=== PATIENT | male | born 1940 | race Hispanic/Latino ===

== ENCOUNTER 2016-11-09 00:23 | Inpatient (IN) | payer MEDICARE ==
[2016-11-09 01:12] LABS: Basophils % (Auto) 1.2 % (0.0-1.8); Eosinophils % (Auto) 6.6 % (0.0-4.3); Hematocrit 40.7 % (35.5-45.6); Hemoglobin 14.3 gm/dl (11.8-15.2); Mean Corpuscular HGB Conc 35 % (32-34); Mean Corpuscular Hemoglobin 33 pg (28-32); Mean Corpuscular Volume 94 fl (84-94); Platelet Count 195 K/mm3 (140-440); Red Blood Count 4.31 M/mm3 (3.65-5.03); White Blood Count 5.8 K/mm3 (4.5-11.0)
[2016-11-09 01:32] LABS: Anion Gap 17 mmol/L; BUN/Creatinine Ratio 15.83; Blood Urea Nitrogen 19 mg/dL (9-20); Carbon Dioxide 23 mmol/L (22-30); Chloride 98.5 mmol/L (98-107); Glucose 245 mg/dL (75-100); Potassium 4.5 mmol/L (3.6-5.0); Sodium 134 mmol/L (137-145)
--- NOTE | 2016-11-09 02:52 | Emergency Department Report ---
ED Chest Pain HPI - General Chief Complaint: Chest Pain Stated Complaint: CHEST PAIN Time Seen by Provider: 11/09/16 02:42 Source: patient Mode of arrival: Ambulatory Limitations: No Limitations - History of Present Illness Initial Comments: 76-year-old male with a past medical history CVA, diabetes, hypertension, CAD, elevated cholesterol, and beautiful cardiac stent presents to the hospital complaining of chest pain. Pain started 1 hour prior to arrival. Patient was sitting on his bed at symptom onset. Pain at the midsternal area, stabbing in nature, 4/10 in intensity. Denies associated shortness breath, nausea, vomiting , diaphoresis. Pain free at this time. Patient she states it feels like heart attack pain but admits he cannot remember what his heart attack feels like but states what his previous heart attack he had radiation to his jaw. He denies radiation to jaw with this episode. Patient states he has chronic memory deficits and anesthesia of the left side of his body since having a stroke. Severity scale (0 -10): 0 - Related Data Home Medications Medication Instructions Recorded Confirmed Last Taken Amlodipine Besylate 10 mg PO DAILY 11/09/16 11/09/16 Unknown Omeprazole 20 mg PO DAILY 11/09/16 11/09/16 Unknown Pioglitazone 30 mg PO DAILY 11/09/16 11/09/16 Unknown Pravastatin Sodium 40 mg PO DAILY 11/09/16 11/09/16 Unknown Allergies Allergy/AdvReac Type Severity Reaction Status Date / Time No Known Allergies Allergy Unverified 03/01/15 09:54 Heart Score - HEART Score History: Slightly suspicious EKG: Non-specific Age: > 65 Risk factors: > 3 risk factors or hx of atherosclerotic disease Troponin: < normal limit HEART Score: 5 ED Review of Systems ROS: Stated complaint: CHEST PAIN Other details as noted in HPI Comment: All other systems reviewed and negative Other: Constitutional: No fevers chills Eyes: No eye pain visual changes ENT: No ear pain or throat pain Neck: Denies pain Respiratory: Denies cough wheezing shortness of breath Cardiovascular: As per HPI GI: Denies abdominal pain, nausea, vomiting, diarrhea : Denies dysuria Musculoskeletal: Denies back pain Skin: Denies rash, lesions, erythema Neurologic: Denies headache, numbness, weakness Psychiatric: Denies suicidal ideation, hallucinations ED Past Medical Hx - Past Medical History Hx Hypertension: Yes 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) Hx Heart Attack/AMI: Yes Hx Diabetes: Yes Additional medical history: high cholesterol - Surgical History Hx Coronary Stent: Yes Additional Surgical History: prostate - Social History Smoking Status: Never Smoker Substance Use Type: None - Medications Home Medications: Home Medications Medication Instructions Recorded Confirmed Last Taken Type Amlodipine Besylate 10 mg PO DAILY 11/09/16 11/09/16 Unknown History Omeprazole 20 mg PO DAILY 11/09/16 11/09/16 Unknown History Pioglitazone 30 mg PO DAILY 11/09/16 11/09/16 Unknown History Pravastatin Sodium 40 mg PO DAILY 11/09/16 11/09/16 Unknown History ED Physical Exam - General Limitations: No Limitations - Other Other exam information: General: No limitations, patient is alert in no acute distress Head exam: Atraumatic, normocephalic Eyes exam: Normal appearance ENT: Moist mucous membrane, normal oropharynx Neck exam: Normal inspection, full range of motion, no meningismus nontender Respiratory exam: Clear to auscultation bilateral, no wheezes, rales, crackles Cardiovascular: Normal rate and rhythm, normal heart sounds Abdomen: Soft, nondistended, and nontender, with normal bowel sounds, no rebound, or guarding Extremity: Full range of motion normal inspection no deformity, tenderness or edema Back: Normal Inspection, full range of motion, no tenderness Neurologic: Alert, oriented x3, cranial nerves intact, no sensation to palpation of left-sided body. 5/5 upper and lower extremity strength Psychiatric: normal affect, normal mood Skin: Warm, dry, intact ED Course Vital Signs 11/09/16 11/09/16 11/09/16 00:47 02:47 03:28 Temperature 97.8 F Pulse Rate 52 L 47 L Respiratory 16 18 Rate Blood Pressure 163/83 O2 Sat by Pulse 98 98 Oximetry 11/09/16 11/09/16 03:30 03:45 Temperature Pulse Rate 49 L 46 L Respiratory 18 17 Rate Blood Pressure 161/76 161/76 O2 Sat by Pulse 97 96 Oximetry - Reevaluation(s) Reevaluation #1: 11/09/16 pt pain free in ED EDIE score - Edie Score Age > 65: (1) Yes Aspirin use within the Past 7 Days: (0) No 3 or more CAD Risk Factors: (1) Yes 2 or more Angina events in past 24 hrs: (0) No Known CAD with more than 50% Stenosis: (0) No Elevated Cardiac Markers: (0) No ST Deviation Greater than 0.5mm: (0) No EDIE Score: 2 ED Medical Decision Making - Lab Data Result diagrams: 11/09/16 04:00 11/09/16 00:57 Lab Results 11/09/16 11/09/16 11/09/16 Range/Units 00:57 00:57 04:00 WBC 5.8 5.9 (4.5-11.0) K/mm3 RBC 4.31 4.20 (3.65-5.03) M/mm3 Hgb 14.3 13.7 (11.8-15.2) gm/dl Hct 40.7 39.8 (35.5-45.6) % MCV 94 95 H (84-94) fl MCH 33 H 33 H (28-32) pg MCHC 35 H 34 (32-34) % RDW 14.0 14.1 (13.2-15.2) % Plt Count 195 178 (140-440) K/mm3 Lymph % (Auto) 31.3 34.6 (13.4-35.0) % [place] % (Auto) 8.5 H 9.3 H (0.0-7.3) % Eos % (Auto) 6.6 H 7.2 H (0.0-4.3) % Baso % (Auto) 1.2 1.1 (0.0-1.8) % Lymph # 1.8 2.0 (1.2-5.4) K/mm3 [place] # 0.5 0.6 (0.0-0.8) K/mm3 Eos # 0.4 0.4 (0.0-0.4) K/mm3 Baso # 0.1 0.1 (0.0-0.1) K/mm3 Seg Neutrophils % 52.4 47.8 (40.0-70.0) % Seg Neutrophils # 3.0 2.8 (1.8-7.7) K/mm3 Sodium 134 L (137-145) mmol/L Potassium 4.5 (3.6-5.0) mmol/L Chloride 98.5 (98-107) mmol/L Carbon Dioxide 23 (22-30) mmol/L Anion Gap 17 mmol/L BUN 19 (9-20) mg/dL Creatinine 1.2 (0.8-1.5) mg/dL Estimated GFR 59 ml/min BUN/Creatinine Ratio 15.83 % Glucose 245 H (75-100) mg/dL Calcium 9.0 (8.4-10.2) mg/dL Troponin T < 0.010 (0.00-0.029) ng/mL - EKG Data -: EKG Interpreted by [facility] ([facility], 1st degree av block, rbbb) - EKG Data 11/09/16 04:46 repeat ekg: dhaval 46, 1st degree av block, rbb, ald Critical Care Time: No Critical care attestation.: If time is entered above; I have spent that time in minutes in the direct care of this critically ill patient, excluding procedure time. ED Disposition Clinical Impression: Chest pain, Hx of heart artery stent, History of CVA with residual deficit Disposition: 09 OP ADMIT IP TO THIS HOSP Is pt being admited?: Yes Condition: Stable Time of Disposition: 02:55 (Dr Willis/hosp)
[2016-11-09] MEDS ORDERED: DULCOLAX PR PRN (03:44)
[2016-11-09] MEDS ORDERED: MORPHINE IV PRN (03:44)
[2016-11-09] MEDS ORDERED: SODIUM CHLORIDE FLUSH SYRINGE 10 ML IV PRN (03:44)
[2016-11-09] MEDS ORDERED: TYLENOL PO PRN (03:44)
[2016-11-09] MEDS ORDERED: ZOFRAN IV PRN (03:44)
[2016-11-09] MEDS ORDERED: MILK OF MAGNESIA PO PRN (03:44)
--- NOTE | 2016-11-09 03:51 | History and Physical Report ---
History of Present Illness Date of examination: 11/09/16 History of present illness: 76-year-old man with a history of hypertension, coronary artery disease, diabetes, hyperlipidemia, CVA comes emergency room with complaints of chest pain. Pain is in the epigastric area which is a sharp pain, intermittent in nature lasting 30 minutes, no radiation any cannot identify exacerbation or relieving factors. Had a stress test this year Patient denies cough, abdominal pain, hematochezia, dysuria, frequency, focal weakness, dysarthria, fever chills, polydipsia polyuria, hot or cold intolerance , easy bruisability, or rash or bleeding from mucosal membrane, rhinorrhea, epistaxis, earache, tinnitus, blurry vision, eye discharge, anxiety, depression. Other review of systems negative PAST SURGICAL HISTORY: Prostate SOCIAL HISTORY: Denies alcohol, tobacco, drugs FAMILY HISTORY: Hypertension Medications and Allergies Allergies Allergy/AdvReac Type Severity Reaction Status Date / Time No Known Allergies Allergy Unverified 03/01/15 09:54 Home Medications Medication Instructions Recorded Confirmed Last Taken Type Amlodipine Besylate 10 mg PO DAILY 11/09/16 11/09/16 Unknown History Omeprazole 20 mg PO DAILY 11/09/16 11/09/16 Unknown History Pioglitazone 30 mg PO DAILY 11/09/16 11/09/16 Unknown History Pravastatin Sodium 40 mg PO DAILY 11/09/16 11/09/16 Unknown History Active Meds: Active Medications Acetaminophen (Tylenol) 650 mg PO Q4H PRN PRN Reason: Pain MILD(1-3)/Fever >100.5/ESPINOZA Bisacodyl (Dulcolax) 10 mg CA QDAY PRN PRN Reason: Constipation unrelieved by MOM Magnesium Hydroxide (Milk Of Magnesia) 30 ml PO Q4H PRN PRN Reason: Constipation Morphine Sulfate (Morphine) 1 mg IV Q4H PRN PRN Reason: Pain, Moderate (4-6) Ondansetron HCl (Zofran) 4 mg IV Q8H PRN PRN Reason: N/V unrelieved by Reglan Sodium Chloride (Sodium Chloride Flush Syringe 10 Ml) 10 ml IV PRN PRN PRN Reason: LINE FLUSH Exam - Physical Exam Narrative exam: Gen. appearance: Patient lying in bed, no apparent distress HEENT: Normocephalic, atraumatic, pupils equally round and reactive to light, extraocular movement intact, and no sclericterus,. No JVD or thyromegaly or nodule,neck supple, no carotid bruit ,mucous membranes moist, no exudate or erythema Heart: S1, S2, regular rate and rhythm Lungs: Clear to auscultation bilaterally, breathing comfortable Abdomen: Positive bowel sounds, nontender, nondistended, no organomegaly Extremity: No edema, cyanosis, clubbing Skin: No rash, nodules, warm, dry Neuro: Oriented 3, cranial nerves II-12 intact, speech is fluent, motor and sensory intact - Constitutional Vitals: Temp Pulse Resp BP Pulse Ox 97.8 F 52 L 16 163/83 98 11/09/16 00:47 11/09/16 00:47 11/09/16 02:47 11/09/16 00:47 11/09/16 00:47 Results - Labs CBC & Chem 7: 11/09/16 04:00 11/09/16 04:00 Labs: Abnormal lab results 11/09/16 11/09/16 Range/Units 00:57 00:57 MCH 33 H (28-32) pg MCHC 35 H (32-34) % [place] % (Auto) 8.5 H (0.0-7.3) % Eos % (Auto) 6.6 H (0.0-4.3) % Sodium 134 L (137-145) mmol/L Glucose 245 H (75-100) mg/dL - Imaging and Cardiology EKG: image reviewed Chest x-ray: image reviewed Assessment and Plan Unstable angina Coronary artery disease Hypertension Diabetes Hyperlipidemia Admit to medicine Check cardiac enzymes, lipid profile and consult cardiology Check fingersticks initiate insulin sliding scale Start DVT prophylaxis
[2016-11-09 04:43] LABS: Basophils % (Auto) 1.1 % (0.0-1.8); Eosinophils % (Auto) 7.2 % (0.0-4.3); Hematocrit 39.8 % (35.5-45.6); Hemoglobin 13.7 gm/dl (11.8-15.2); Mean Corpuscular HGB Conc 34 % (32-34); Mean Corpuscular Hemoglobin 33 pg (28-32); Mean Corpuscular Volume 95 fl (84-94); Platelet Count 178 K/mm3 (140-440); Red Cell Distribution Width 14.1 % (13.2-15.2); White Blood Count 5.9 K/mm3 (4.5-11.0)
[2016-11-09 04:50] LABS: BUN/Creatinine Ratio 14.28; Calcium 8.8 mg/dL (8.4-10.2); Chloride 101.3 mmol/L (98-107); Potassium 4.7 mmol/L (3.6-5.0)
[2016-11-09] MEDS ORDERED: D50W (25GM) IV PRN (08:13)
[2016-11-09] MEDS: NOVOLOG SUB-Q SCH ×4 (08:36→21:33)
--- NOTE | 2016-11-09 09:35 | XRay Report ---
AP CHEST: HISTORY: chest pain The right hemidiaphragm is elevated or eventrated with compressive atelectasis at the right lung base. The right upper lobe and left lung are clear. Heart size and pulmonary vascularity are within normal limits. Mild aortic calcifications. The thoracic cage is unremarkable. IMPRESSION: Elevated right hemidiaphragm with atelectasis at the right lung base.
--- NOTE | 2016-11-09 13:13 | Consultation ---
History of Present Illness Consult date: 11/09/16 Consult reason: chest pain History of present illness: 76 YO man with h/o CAD s/p PCI, Htn, DM, HL, and prior CVA who presented to ED after he had episodes of chest pain. He describes the pain as a sharp stabbing type of pain in his left chest with no radiation. He did have associated dyspnea and nausea but no diaphoresis. There was no exertional component to his pain. He thinks he had similar pain prior to his previous [place]. [place] has currently been ruled out with serial negative cardiac enzymes. ECG reveals sinus bradycarida at 51 bpm with RBBB and LAFB. Past History Past Medical History: CAD, diabetes, hypertension, hyperlipidemia, stroke Past Surgical History: PTCA Social history: denies: smoking Family history: CAD Medications and Allergies Allergies Allergy/AdvReac Type Severity Reaction Status Date / Time No Known Allergies Allergy Unverified 03/01/15 09:54 Home Medications Medication Instructions Recorded Confirmed Last Taken Type Amlodipine Besylate 10 mg PO DAILY 11/09/16 11/09/16 Unknown History Omeprazole 20 mg PO DAILY 11/09/16 11/09/16 Unknown History Pioglitazone 30 mg PO DAILY 11/09/16 11/09/16 Unknown History Pravastatin Sodium 40 mg PO DAILY 11/09/16 11/09/16 Unknown History Active Meds: Active Medications Acetaminophen (Tylenol) 650 mg PO Q4H PRN PRN Reason: Pain MILD(1-3)/Fever >100.5/ESPINOZA Bisacodyl (Dulcolax) 10 mg RI QDAY PRN PRN Reason: Constipation unrelieved by MOM Dextrose (D50w (25gm)) 50 ml IV PRN PRN PRN Reason: Hypoglycemia Insulin Aspart (Novolog) 0 units SUB-Q ACHS WHITNEY PRN Reason: Protocol Last Admin: 11/09/16 12:17 Dose: 3 units Magnesium Hydroxide (Milk Of Magnesia) 30 ml PO Q4H PRN PRN Reason: Constipation Morphine Sulfate (Morphine) 1 mg IV Q4H PRN PRN Reason: Pain, Moderate (4-6) Ondansetron HCl (Zofran) 4 mg IV Q8H PRN PRN Reason: N/V unrelieved by Reglan Sodium Chloride (Sodium Chloride Flush Syringe 10 Ml) 10 ml IV PRN PRN PRN Reason: LINE FLUSH Review of Systems All systems: negative (per hpi) Physical Examination Vital Signs Temp Pulse BP Pulse Ox 97.8 F 52 L 163/83 98 11/09/16 00:47 11/09/16 00:47 11/09/16 00:47 11/09/16 00:47 Last Vital Signs Temp 97.7 F 11/09/16 05:32 Pulse 54 L 11/09/16 05:32 Resp 20 11/09/16 05:32 BP 179/83 11/09/16 05:32 Pulse Ox 95 11/09/16 10:48 General appearance: no acute distress HEENT: Positive: EOMI Neck: Positive: neck supple Cardiac: Positive: Reg Rate and Rhythm. Negative: Audible Murmur Lungs: Positive: clear to auscultation Neuro: Positive: Grossly Intact Abdomen: Positive: Soft, Active Bowel Sounds Extremities: Absent: edema Results 11/09/16 04:00 11/09/16 04:00 CBC 11/09/16 Range/Units 04:00 WBC 5.9 (4.5-11.0) K/mm3 RBC 4.20 (3.65-5.03) M/mm3 Hgb 13.7 (11.8-15.2) gm/dl Hct 39.8 (35.5-45.6) % Plt Count 178 (140-440) K/mm3 Lymph # 2.0 (1.2-5.4) K/mm3 [place] # 0.6 (0.0-0.8) K/mm3 Eos # 0.4 (0.0-0.4) K/mm3 Baso # 0.1 (0.0-0.1) K/mm3 Comprehensive Metabolic Panel 11/09/16 Range/Units 04:00 Sodium 139 (137-145) mmol/L Potassium 4.7 (3.6-5.0) mmol/L Chloride 101.3 (98-107) mmol/L Carbon Dioxide 26 (22-30) mmol/L BUN 20 (9-20) mg/dL Creatinine 1.4 (0.8-1.5) mg/dL Glucose 181 H (75-100) mg/dL Calcium 8.8 (8.4-10.2) mg/dL Assessment and Plan Chest pain with typical and atypical features. [place] has been ruled out CAD s/p prior [place] and PCI Htn DM HL Sinus bradycardia, Bifascicular block (RBBB and LAFB) Recommend: Restart aspirin, statin, norvasc. Will avoid beta franklin in setting of sinus bradycardia and bifascicular block MPI tomorrow.
--- NOTE | 2016-11-09 15:42 | Event Note ---
Date: 11/09/16 Patient admitted this morning for chest pain. Charts were reviewed.
[2016-11-09] MEDS: BABY ASPIRIN PO SCH (16:00)
[2016-11-09] MEDS: NORVASC PO SCH (16:00)
[2016-11-10 07:45] LABS: Eosinophils % (Auto) 5.9 % (0.0-4.3); Hematocrit 41.5 % (35.5-45.6); Hemoglobin 14.3 gm/dl (11.8-15.2); Mean Corpuscular HGB Conc 34 % (32-34); Mean Corpuscular Hemoglobin 33 pg (28-32); Mean Corpuscular Volume 95 fl (84-94); Platelet Count 182 K/mm3 (140-440); Red Blood Count 4.39 M/mm3 (3.65-5.03); Red Cell Distribution Width 13.8 % (13.2-15.2); White Blood Count 6.4 K/mm3 (4.5-11.0)
[2016-11-10 07:57] LABS: Anion Gap 14 mmol/L; BUN/Creatinine Ratio 15.45; Blood Urea Nitrogen 17 mg/dL (9-20); Calcium 8.7 mg/dL (8.4-10.2); Carbon Dioxide 27 mmol/L (22-30); Chloride 103.1 mmol/L (98-107); Glucose 160 mg/dL (75-100); Potassium 4.3 mmol/L (3.6-5.0); Sodium 140 mmol/L (137-145)
[2016-11-10] MEDS: NOVOLOG SUB-Q SCH ×3 (08:00→17:36)
[2016-11-10] MEDS ORDERED: LEXISCAN IV ONE ×2 (09:46→09:49)
--- NOTE | 2016-11-10 11:31 | Admit Criteria Form ---
Admission Criteria Documentation: CARDIOLOGY GRG Clinical Indications for Admission to Inpatient Care ( Place 'X' for any and all applicable criteria): Hospital admission is needed for appropriate care of the patient because of ANY ONE of the following (1): [ ] I. Hemodynamic instability as indicated by ALL of the following (1)(2)(3) (4)(5) [ ]a) Vital signs or other findings not as expected for chronic patient condition or baseline [ ]b) Instability indicated by ANY ONE of the following: [ ]i) Hypotension [ ]ii) Symptomatic Tachycardia unresponsive to treatment ( e.g., analgesia, fluids, sedation as indicated) [ ]iii) Inadequate perfusion indicated by ANY ONE of the following: [ ] 1) Lactic acidosis (> 2 mmol/L) [ ] 2) New abnormal capillary refill (> 3 seconds) [ ] 3) Reduced urine output [ ] 4) New altered mental status [ ]iv) Orthostatic vital sign changes unresponsive to treatment (e.g., fluids) [ ]v) IV inotropic or vasopressor medication required to maintain adequate blood pressure or perfusion [ ] II. Severe heart failure as indicated by ANY ONE of the following(17)(18) [ ]a) Respiratory distress [ ]b) Hypotension [ ]c) Anasarca (refractory to outpatient therapy) [ ]d) Cardiac arrhythmias of immediate concern [ ]e) Myocardial ischemia [ ] III. Cardiac arrhythmias or findings of immediate concern indicated by ANY ONE of the following (19)(20): [ ] a) Heart rhythms that are inherently dangerous or unstable indicated by ANY ONE of the following (21)(22)(23): [ ] i) Resuscitated ventricular fibrillation or cardiac arrest [ ] ii) Ventricular escape rhythm [ ] iii) Sustained ventricular tachycardia (30 seconds or more of ventricular rhythm at greater than 100 beats per minute) [ ] iv) Nonsustained ventricular tachycardia and ANY ONE of the following: [ ] 1) Suspected cardiac ischemia as cause or consequence of ventricular tachycardia [ ] 2) In setting of acute myocarditis [ ] b) Unstable cardiac conduction defects indicated by ANY ONE of the following(23)(24)(25) [ ] i) Type II second-degree atrioventricular block [ ]ii) Third-degree atrioventricular block [ ]iii) New-onset left bundle branch block with suspected myocardial ischemia [ ]c) Any heart rhythm and ANY ONE of the following (21)(22)(26)(27) (28) [ ] i) Continuous long-term ECG monitoring needed (e.g., initiation of drug requiring monitoring for more than 24 hours) [ ] ii) Patient has automatic implanted cardioverter defibrillator that is repeatedly firing, malfunctioning, or in need of immediate adjustment of settings beyond the scope of ambulatory or observation care [ ]d) Heart rhythms of concern due to ANY ONE of the following: [ ] i) Hypotension [ ] ii) Respiratory distress [ ] iii) Association with other significant symptoms (e.g., bradycardia with syncope or ongoing dizziness, supraventricular tachycardia with chest pain (14)(15)(17) [ ] IV. Monitoring for cardiac contusion beyond the scope of observation care needed [A](30)(31)(32) [ ] V. Surgical or device complication (e.g., valve replacement complication , pacemaker dysfunction) (35)(41)(44)(45)(46) [ ] . Inpatient palliative care needed. [B](49) Also use Inpatient Palliative Care Criteria [ ] VII. Nonbacterial thrombotic (marantic) endocarditis (36)(43)(47)(48) [X] VIII. Cardiology condition, symptom, or finding for which emergency and observation care has failed or are not considered appropriate. [ ] IX. Acute valvular disease requiring inpatient as indicated by ANY ONE of the following (41) [ ]a) Acute valvular regurgitation (42) [ ]b) Noninfectious valvulitis (43) [ ]c) Obstructive valve thrombosis [ ]d) Paravalvular leak [ ]e) Other significant valvular disorder remaining after emergency or observation level of care (as appropriate) [ ]X. Pericardial disease requiring inpatient treatment as indicated by ANY ONE of the following (33)(34)(35)(36)(37) [ ]a) Suspected tamponade (38)(39)(40) [ ]b) Hemopericardium [ ]c) Other significant pericardial disorder remaining after emergency or observation level of care (as appropriate) [ ] XI. Cardiac ischemia beyond scope of emergency and observation care. [ ] XII. Hypertension requiring inpatient treatment as indicated by ANY ONE of the following (6)(7)(8) [ ]a) SBP greater than 220 mm Hg or DBP greater than 120 mmHg despite treatment [ ]b) SBP greater than 140 mm Hg or DBP greater than 100 mm Hg with evidence of acute end organ damage as indicated by ANY ONE of the following [ ] i) Altered mental status [ ] ii) Acute renal failure as indicated by new onset of ANY ONE of the following (9)(10)(11)(12)(13) [ ]1) 3-fold rise in serum creatinine from baseline [ ]2) Serum creatinine greater than 4 mg/dL ( 354 micromoles/L) with acute rise greater than 0.5 mg/dL (44.2 micromoles/L) [ ]3) Reduction of more than 75% in estimated glomerular filtration rate from baseline [ ]4) Estimated glomerular filtration rate less than 35 mL/min/1.73m2 (0.59 mL/sec/1.73m2) in child up to 18 years of age [ ]5) Cessation of urine output indicated by ALL of the following [ ]A. Adequate volume status [ ]B. Inadequate urine output as indicated by ANY ONE of the following [ ]a. Urine output less than 0.3 mL/kg/hr for 24 hours [ ]b. Anuria (urine output less than 0.1 mL/kg/hr) for 12 hours [ ] iii) Aortic dissection [ ] iv) Myocardial Ischemia [ ] v) Left ventricular heart failure [ ]vi) Retinal Hemorrhage [ ]vii) Other significant finding [ ]c) Hypertension in child requiring inpatient treatment as indicated by ALL of the following(14)(15)(16) [ ] i) Outpatient treatment not effective, not available, or not appropriate [ ]ii) SBP or DBP greater than 95th percentile for age [ ]iii) Evidence of acute end organ damage as indicated by ANY ONE of the following [ ]1) Altered mental status [ ]2) Acute renal failure as indicated by new onset of ANY ONE of the following(9)(10)(11)(12)(13) [ ]A. 3-fold rise in serum creatinine from baseline [ ]B. Serum creatinine greater than 4 mg/dL (354 micromoles/L) with acute rise greater than 0.5 mg/dL (44.2 micromoles/L) [ ]C. Reduction of more than 75% in estimated glomerular filtration rate from baseline [ ]D. Estimated glomerular filtration rate less than 35 mL/min/1.73m2 (0.59 mL/sec/1.73m2) in child up to 18 years of age [ ]E. Cessation of urine output indicated by ALL of the following [ ]a. Adequate volume status [ ]b. Inadequate urine output as indicated by ANY ONE of the following [ ]i) Urine output less than 0.3 mL/kg/hr for 24 hours [ ]ii) Anuria ( urine output less than 0.1 mL/kg/hr) for 12 hours [ ]3) Severe headache [ ]4) Visual disturbance [ ]5) Retinal hemorrhage [ ]6) Other significant finding [ ]XIII. Complications of transplanted heart indicated by ANY ONE of the following(61): [ ]a) Acute graft rejection requiring inpatient management (eg, intravenous immunosuppression)(62)(63) [ ]b) Acute graft heart failure indicated by ANY ONE of the following(64): [ ]i) Hemodynamic instability [ ]ii) Cardiac arrhythmias of immediate concern [ ]iii) Pulmonary edema that is very severe (eg, mechanical ventilation needed, imminent or likely, need for 100% oxygen to keep oxygen saturation above 90%) [ ]iv) Pulmonary edema that is persistent as indicated by ALL of the following: [ ]1) New need for oxygen therapy to keep oxygen saturation above 90% (or increased FiO2 need from baseline) [ ]2) Has not improved sufficiently with emergency department or observation care IV diuretics or other heart failure treatments[E] [ ]v) Altered mental status that is severe or persistent [ ]vi) Increased creatinine (new on laboratory test) with reduction of more than 50% in estimated glomerular filtration rate from baseline [ ]vii) Progressively (ongoing) rising creatinine (known from past laboratory test) with reduction of more than 25% in estimated glomerular filtration rate from baseline [ ]viii) Acute renal failure [ ]ix) Acute peripheral ischemia (eg, examination shows pulseless, cool, mottled, or cyanotic extremity) [ ]x) Pulmonary artery catheter monitoring needed [ ]xi) Other sign or symptom of heart failure requiring inpatient treatment (ie, too severe or not responsive to outpatient and observation care treatment) [ ]c) Infection requiring inpatient management (eg, Hemodynamic instability, need for intravenous antimicrobial treatment)(66)(67)(68)(69)(70) [ ]d) Cardiac allograft vasculopathy requiring inpatient management ( eg evidence of cardiac ischemia)(71) [ ]e) Other complication of transplanted heart (eg, stroke, severe pulmonary hypertension, severe valvular dysfunction) requiring inpatient management(72) The original [facility] [employer] content created by [facility] [employer] has been revised. The portions of the content which have been revised are identified through the use of italic text or in bold, and [facility] has neither reviewed nor approved the modified material. All other unmodified content is copyright [facility] [employer]. Please see references footnoted in the original [facility] [employer] edition 2016 Admission Criteria Met: Yes
[2016-11-10] MEDS: BABY ASPIRIN PO SCH (12:37)
[2016-11-10] MEDS: NORVASC PO SCH (12:38)
[2016-11-10 12:39] VITALS: BP 147/69
--- NOTE | 2016-11-10 14:34 | Discharge Summary ---
Providers - Providers Date of Admission: 11/09/16 03:44 Date of discharge: 11/10/16 Attending physician: ISAIAS HE MD Primary care physician: JAVA WEB ENGINEER Hospitalization Reason for admission: Chest pain Condition: Stable Pertinent studies: Cardiac stress test negative for reversible ischemia Hospital course: 76-year-old man with a history of hypertension, coronary artery disease, diabetes, hyperlipidemia, CVA comes to emergency room with complaints of chest pain. Pain is in the epigastric area which is a sharp pain, intermittent in nature lasting 30 minutes, no radiation any cannot identify exacerbation or relieving factors. Had a stress test this year. Patient denies cough, abdominal pain, hematochezia, dysuria, frequency, focal weakness, dysarthria, fever chills, polydipsia polyuria, hot or cold intolerance, easy bruisability, or rash or bleeding from mucosal membrane, rhinorrhea, epistaxis, earache, tinnitus, blurry vision, eye discharge, anxiety, depression. Other review of systems negative. Patient was admitted to the floor and cardiac enzymes were negative, EKG showed no ST-T abnormalities, cardiac stress test was negative. Cardiology consult appreciated and recommended conservative management. Patient was stable at the time of discharge. He was scheduled to be seen by his front desk team member in 1 week. Patient's medications were reviewed and updated at the time of discharge. Patient was chest pain-free. Patient's questions and concerns were addressed at the bedside. Disposition: - TO HOME OR SELFCARE Time spent for discharge: 31 minutes - Discharge Diagnoses (1) Chest pain Status: Acute Qualifiers: Chest pain type: C Ischemic chest pain type: I (2) Hx of heart artery stent Status: Acute Core Measure Documentation - Palliative Care Palliative Care/ Comfort Measures: Not Applicable - Core Measures Any of the following diagnoses?: none Exam - Physical Exam Narrative exam: Not in cardiopulmonary distress. The patient appeared well nourished and normally developed. Vital signs as documented. Head exam is unremarkable. No scleral icterus . Neck is without jugular venous distension, thyromegaly, or carotid bruits. Lungs are clear to auscultation. Cardiac exam reveals regular rate and Rhythm. First and second heart sounds normal. No murmurs, rubs or gallops. Abdominal exam reveals normal bowel sounds, no masses, no organomegaly and no aortic enlargement. Extremities are nonedematous and both femoral and pedal pulses are normal. 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 No focal weakness. - Constitutional Vitals: Temp Pulse Resp BP Pulse Ox 97.9 F 84 18 147/69 99 11/10/16 08:00 11/10/16 12:38 11/10/16 08:00 11/10/16 12:38 11/09/16 23:00 Plan Activity: no restrictions Weight Bearing Status: Full Weight Bearing Diet: low cholesterol, low salt Follow up with: PRIMARY CARE, [Primary Care Provider] - 7 Days Prescriptions: Amlodipine Besylate 10 mg PO DAILY #30 tab Aspirin [Aspirin BABY CHEW TAB] 81 mg PO QDAY #30 tab.chew
--- NOTE | 2016-11-10 14:53 | Progress Note ---
Assessment and Plan - Patient Problems (1) Chest pain Current Visit: Yes Status: Acute Qualifiers: Chest pain type: C Ischemic chest pain type: I Plan to address problem: Patient presented with chest pain, underwent a rule out [place] protocol. 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 Medical therapy and aggressive risk factor modification is recommended. Subjective Date of service: 11/10/16 Interval history: Patient underwent a Persantine thallium stress test today, results show a moderate to large, fixed apical defect consistent with a prior myocardial infarction. There is no reversible ischemia demonstrated. Left ventricle systolic function is calculated at 46%. Objective Vital Signs Temp Pulse Pulse Resp BP BP Pulse Ox 11/10/16 12:38 84 147/69 11/10/16 10:19 65 180/86 11/10/16 10:18 65 185/81 11/10/16 10:17 68 177/84 11/10/16 10:16 73 166/76 11/10/16 10:15 79 160/87 11/10/16 10:14 72 174/82 11/10/16 09:42 49 L 172/80 11/10/16 08:00 97.9 F 49 L 18 123/69 11/09/16 23:00 52 L 20 99 11/09/16 22:00 50 L 11/09/16 20:00 98.0 F 50 L 20 101/65 99 11/09/16 19:23 97 11/09/16 16:00 50 L 118/65 - Physical Examination General: No Apparent Distress HEENT: Positive: EOMI Neck: Positive: neck supple Cardiac: Positive: Reg Rate and Rhythm Lungs: Positive: Decreased Breath Sounds Neuro: Positive: Grossly Intact Abdomen: Positive: Soft, Active Bowel Sounds Skin: Positive: Clear Extremities: Absent: edema - Labs and Meds CBC 11/10/16 Range/Units 07:19 WBC 6.4 (4.5-11.0) K/mm3 RBC 4.39 (3.65-5.03) M/mm3 Hgb 14.3 (11.8-15.2) gm/dl Hct 41.5 (35.5-45.6) % Plt Count 182 (140-440) K/mm3 Lymph # 1.4 (1.2-5.4) K/mm3 [place] # 0.5 (0.0-0.8) K/mm3 Eos # 0.4 (0.0-0.4) K/mm3 Baso # 0.1 (0.0-0.1) K/mm3 Comprehensive Metabolic Panel 11/10/16 Range/Units 07:19 Sodium 140 (137-145) mmol/L Potassium 4.3 (3.6-5.0) mmol/L Chloride 103.1 (98-107) mmol/L Carbon Dioxide 27 (22-30) mmol/L BUN 17 (9-20) mg/dL Creatinine 1.1 (0.8-1.5) mg/dL Glucose 160 H (75-100) mg/dL Calcium 8.7 (8.4-10.2) mg/dL - Imaging and Cardiology EKG: image reviewed
--- NOTE | 2016-11-13 14:31 | Query- Chest Pain ---
Chris Matta___Dagmar Date:___11/13/2016 Delivery And Mail Sorter/CDS:___Carlyn/Tamara Phone#:__[phone] Exercise your independent professional judgment when responding to query. Questions asked do not imply a particular answer is desired or expected. We greatly appreciate your clarification on this issue. Clinical Documentation States: The Internal Med H&P note on 11/09/2016 states "76-year-old man with a history of hypertension, coronary artery disease, diabetes, hyperlipidemia, CVA comes emergency room with complaints of chest pain. Pain is in the epigastric area which is a sharp pain, intermittent in nature lasting 30 minutes, no radiation any cannot identify exacerbation or relieving factors. Had a stress test this year." The Cardiology Progress note on 11/10/2016 states "Assessment and Plan - Patient Problems (1) Chest pain Current Visit: Yes Status: Acute Qualifiers: Chest pain type: C Ischemic chest pain type: I Plan to address problem: Patient presented with chest pain, underwent a rule out [place] protocol. 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 Medical therapy and aggressive risk factor modification is recommended." The Discharge note states " Discharge Diagnoses (1) Chest pain Status: Acute Qualifiers: Chest pain type: C Ischemic chest pain type: I (2) Hx of heart artery stent Status: Acute." Please document the etiology of Chest Pain: [ ] Myocardial Infarction [ ] Pneumonia [ ] Mediastinitis [ ] Costochondritis [ ] Pulmonary Embolism [ ] Coronary Artery Disease [x ] GERD [ ] Other: [ ] Comment/Explanation: Present on Admission: [ x] Yes (Y) [ ] Clinically undeterminable (W) [ ] No(N) Please document response in your Progress Notes and/or Discharge Summary and indicate if the condition was present on admission. SILVERIO
== END 2016-11-10 18:30 | disposition home or self-care (01) | DRG 392 ==
LOC: ED 00:23 → CC2 03:44
PROVIDERS: ADMIT Internal Medicine; ATTEND Internal Medicine
DX: K21.9 Gastro-esophageal reflux disease without esophagitis (principal); I45.2 Bifascicular block; I25.10 Atherosclerotic heart disease of native coronary artery without angina pectoris; I10 Essential (primary) hypertension; E11.9 Type 2 diabetes mellitus without complications; E78.00 Pure hypercholesterolemia, unspecified; E78.5 Hyperlipidemia, unspecified; Z86.73 Personal history of transient ischemic attack (TIA), and cerebral infarction without residual deficits; Z95.5 Presence of coronary angioplasty implant and graft; I25.2 Old myocardial infarction; Z82.49 Family history of ischemic heart disease and other diseases of the circulatory system
CPT/HCPCS: 36415; 71010; 78452; 80048; 82962; 84484; 85025; 93005; 93010; 93017; A9270-GY; A9502; J1815; J2785

== ENCOUNTER 2017-12-21 09:27 | Outpatient (CLI) | payer MEDICARE ==
[2017-12-21 09:53] LABS: Hematocrit 46.1 % (35.5-45.6); Hemoglobin 15.6 gm/dl (11.8-15.2); Mean Corpuscular HGB Conc 34 % (32-34); Mean Corpuscular Hemoglobin 32 pg (28-32); Mean Corpuscular Volume 93 fl (84-94); Platelet Count 235 K/mm3 (140-440); Red Blood Count 4.94 M/mm3 (3.65-5.03); Red Cell Distribution Width 14.3 % (13.2-15.2)
[2017-12-21 10:04] LABS: Bilirubin,Urine NEG (Negative); Blood,Urine NEG (Negative); Color,Urine Yellow (Yellow); Mucus,Urine FEW /HPF; Urobilinogen,Urine < 2.0 mg/dL (<2.0); WBC,Urine < 1.0 /HPF (0.0-6.0)
[2017-12-21 10:10] LABS: Albumin 4.1 g/dL (3.9-5); Calcium 8.9 mg/dL (8.4-10.2)
[2017-12-21 12:29] LABS: Creatinine,Urine 134.7 mg/dL (0.1-20.0); Protein/Creatinine Ratio,Urine 0.31
== END 2017-12-21 09:28 | disposition home or self-care (01) ==
LOC: LAB 09:27
PROVIDERS: ATTEND Internal Medicine Nephrology
DX: I12.9 Hypertensive chronic kidney disease with stage 1 through stage 4 chronic kidney disease, or unspecified chronic kidney disease (principal); N18.9 Chronic kidney disease, unspecified; N28.1 Cyst of kidney, acquired; E78.00 Pure hypercholesterolemia, unspecified; I25.10 Atherosclerotic heart disease of native coronary artery without angina pectoris; Z86.73 Personal history of transient ischemic attack (TIA), and cerebral infarction without residual deficits
CPT/HCPCS: 36415; 80048; 81001; 82040; 82570; 84100; 84156; 85027

== ENCOUNTER 2018-01-04 08:47 | Outpatient (CLI) | payer MEDICARE ==
--- NOTE | 2018-01-04 11:27 | Ultrasound Report ---
ULTRASOUND RENAL BILATERAL HISTORY: Cyst of kidney. Comparison: 03/01/15. TECHNIQUE: transabdominal ultrasound with color Doppler interrogation. FINDINGS: The right kidney measures 10.4 x 4.9 x 5.0cm. Right renal cortex: 1.3cm. A 3.2 x 3.4 cm cyst is identified in the superior right kidney which has increased in size slightly since the previous exam. The left kidney measures 12.0 x 5.4 x 5.8cm. Left renal cortex: 1.3cm. A 3.0 x 3.3 cm cyst is identified at the superior pole of the left kidney. A 0.7 cm cyst is noted at the inferior pole of the left kidney. These appear to be unchanged since the previous exam. Both kidneys demonstrate mild increased renal parenchymal echotexture consistent with nonspecific renal parenchymal disease. No evidence for hypervascular mass, calculus or hydronephrosis. The bladder is empty. IMPRESSION: Slightly echogenic kidneys consistent with nonspecific renal parenchymal disease. Bilateral simple renal cysts as described. No overwhelming change since 2014.
== END 2018-01-04 08:48 | disposition home or self-care (01) ==
LOC: US 08:47
PROVIDERS: ATTEND Internal Medicine Nephrology
DX: N28.1 Cyst of kidney, acquired (principal); I10 Essential (primary) hypertension; E78.00 Pure hypercholesterolemia, unspecified; I25.10 Atherosclerotic heart disease of native coronary artery without angina pectoris; Z86.73 Personal history of transient ischemic attack (TIA), and cerebral infarction without residual deficits
CPT/HCPCS: 76770

== ENCOUNTER 2018-06-24 15:34 | Outpatient (CLI) | payer MEDICARE ==
[2018-06-24 16:11] LABS: Creatinine,Urine 196.2 mg/dL (0.1-20.0); Protein/Creatinine Ratio,Urine 0.63
[2018-06-24 16:24] LABS: Basophils # (Auto) 0.1 K/mm3 (0.0-0.1); Eosinophils # (Auto) 0.4 K/mm3 (0.0-0.4); Hemoglobin 15.6 gm/dl (11.8-15.2); Lymphocytes % (Auto) 30.8 % (13.4-35.0); Monocytes # (Auto) 0.7 K/mm3 (0.0-0.8)
[2018-06-24 16:28] LABS: Albumin 4.2 g/dL (3.9-5)
[2018-06-24 17:06] LABS: Mean Corpuscular HGB Conc 34 % (32-34); Mean Corpuscular Volume 92 fl (84-94); Platelet Count 227 K/mm3 (140-440); Red Blood Count 4.99 M/mm3 (3.65-5.03); Red Cell Distribution Width 13.9 % (13.2-15.2)
== END 2018-06-24 15:35 | disposition home or self-care (01) ==
LOC: LAB 15:34
PROVIDERS: ATTEND Internal Medicine
DX: I12.9 Hypertensive chronic kidney disease with stage 1 through stage 4 chronic kidney disease, or unspecified chronic kidney disease (principal); N18.4 Chronic kidney disease, stage 4 (severe)
CPT/HCPCS: 36415; 80048; 82040; 82570; 84100; 84156; 85025

== ENCOUNTER 2018-07-12 12:20 | Emergency (ER) | payer MEDICARE ==
--- NOTE | 2018-07-12 14:06 | Emergency Department Report ---
Blank Doc - Documentation Documentation: This is a 77-year-old male that presents with GI bleed x1 month. This initial assessment/diagnostic orders/clinical plan/treatment(s) is/are subject to change based on patient's health status, clinical progression and re- assessment by fellow clinical providers in the ED. Further treatment and workup at subsequent clinical providers discretion. Patient/guardians urged not to elope from the ED as their condition may be serious if not clinically assessed and managed. Initial orders include: 1- Patient sent to MAIN ED for further evaluation and treatment 2- labs 3- UA
[2018-07-12 14:48] LABS: Basophils # (Auto) 0.1 K/mm3 (0.0-0.1); Basophils % (Auto) 1.3 % (0.0-1.8); Eosinophils # (Auto) 0.3 K/mm3 (0.0-0.4); Eosinophils % (Auto) 4.6 % (0.0-4.3); Hematocrit 45.1 % (35.5-45.6); Hemoglobin 15.4 gm/dl (11.8-15.2); Lymphocytes # (Auto) 1.4 K/mm3 (1.2-5.4); Mean Corpuscular HGB Conc 34 % (32-34); Mean Corpuscular Volume 93 fl (84-94); Monocytes # (Auto) 0.6 K/mm3 (0.0-0.8); Monocytes % (Auto) 9.4 % (0.0-7.3); Platelet Count 222 K/mm3 (140-440); Red Blood Count 4.86 M/mm3 (3.65-5.03); Red Cell Distribution Width 13.9 % (13.2-15.2)
[2018-07-12 14:54] LABS: INR 0.94 (0.87-1.13)
[2018-07-12 14:55] LABS: Partial Thromboplastin Time 24.7 Sec. (24.2-36.6)
[2018-07-12 14:56] LABS: Albumin 4.3 g/dL (3.9-5)
[2018-07-12 16:49] VITALS: BP 167/89
--- NOTE | 2018-07-12 17:52 | Emergency Department Report ---
ED GI Bleed HPI - General Chief complaint: GI Bleed Stated complaint: URINATING BLOOD Time Seen by Provider: 07/12/18 14:05 Source: patient Mode of arrival: Ambulatory Limitations: No Limitations - History of Present Illness Initial comments: Pt is a 77 yo male who presents to the ED with c/o rectal bleeding that began 1 month ago. The patient denies any hx of hemorrhoids. The patient states he has bright red blood present when having a BM. He states he does strain to have a BM. The patient states he does take stool softener. He denies any abdominal pain, N/V/D. The patient states he has yearly colonscopy due to hx of polyps and believes he is due for his next one. The patient has a hx of DM and only takes glimepiride. He does not take metformin due to GI upset. Severity scale (0 -10): 0 - Related Data Home Medications Medication Instructions Recorded Confirmed Last Taken Omeprazole 20 mg PO DAILY 11/09/16 11/09/16 Unknown Pioglitazone 30 mg PO DAILY 11/09/16 11/09/16 Unknown Pravastatin Sodium 40 mg PO DAILY 11/09/16 11/09/16 Unknown Previous Rx's Medication Instructions Recorded Last Taken Type Amlodipine Besylate 10 mg PO DAILY #30 tab 11/10/16 Unknown Rx Aspirin [Aspirin BABY CHEW TAB] 81 mg PO QDAY #30 tab.chew 11/10/16 Unknown Rx Allergies Allergy/AdvReac Type Severity Reaction Status Date / Time No Known Allergies Allergy Unverified 03/01/15 09:54 ED Review of Systems ROS: Stated complaint: URINATING BLOOD Other details as noted in HPI Comment: All other systems reviewed and negative ED Past Medical Hx - Past Medical History Previous Medical History?: Yes Hx Hypertension: Yes 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) Hx Heart Attack/AMI: Yes Hx Diabetes: Yes Additional medical history: high cholesterol - Surgical History Past Surgical History?: Yes Hx Coronary Stent: Yes Additional Surgical History: prostate - Social History Smoking Status: Never Smoker Substance Use Type: None - Medications Home Medications: Home Medications Medication Instructions Recorded Confirmed Last Taken Type Omeprazole 20 mg PO DAILY 11/09/16 11/09/16 Unknown History Pioglitazone 30 mg PO DAILY 11/09/16 11/09/16 Unknown History Pravastatin Sodium 40 mg PO DAILY 11/09/16 11/09/16 Unknown History Amlodipine Besylate 10 mg PO DAILY #30 tab 11/10/16 Unknown Rx Aspirin [Aspirin BABY CHEW TAB] 81 mg PO QDAY #30 tab.chew 11/10/16 Unknown Rx ED Physical Exam - General Limitations: No Limitations General appearance: alert, in no apparent distress - Head Head exam: Present: atraumatic, normocephalic - Eye Eye exam: Present: normal appearance - ENT ENT exam: Present: mucous membranes moist - Respiratory Respiratory exam: Present: normal lung sounds bilaterally. Absent: respiratory distress, wheezes, rales, rhonchi, stridor, chest wall tenderness, accessory muscle use, decreased breath sounds, prolonged expiratory - Cardiovascular Cardiovascular Exam: Present: normal rhythm, bradycardia, normal heart sounds. Absent: systolic murmur, rubs, gallop - GI/Abdominal GI/Abdominal exam: Present: soft, normal bowel sounds. Absent: distended, tenderness, guarding, rebound, rigid - Rectal Rectal exam: Present: normal inspection, normal rectal tone, heme (-) stool, other (sulema, EMT present during examination, normal rectal exam, brown stool, no blood visualized, hemacult performed and developed by me which shows no presence of blood, no external or internal hemorrhoids on examiation). Absent: decreased rectal tone, black stool, bloody stool, fecal impaction, hemorrhoids, mass, tenderness - Neurological Exam Neurological exam: Present: alert, oriented X3 - Psychiatric Psychiatric exam: Present: normal affect, normal mood - Skin Skin exam: Present: warm, dry, intact ED Course Vital Signs 07/12/18 07/12/18 14:06 16:48 Temperature 98.6 F Pulse Rate 53 L 55 L Respiratory 16 18 Rate Blood Pressure 154/69 Blood Pressure 167/89 [Right] O2 Sat by Pulse 95 97 Oximetry - Reevaluation(s) Reevaluation #1: 07/12/18 18:26 repeat blood glucose is 250. Does not need further treatment. Discussed with pt to speak with his PCP about the elevation in his blood glucose for further glycemic control and management. - Consultations Consultation #1: 07/12/18 18:25 Spoke with CHANDLER Carter about patients history, age, and examination who recommended pt follow up as an outpatient in clinic. ED Medical Decision Making - Lab Data Result diagrams: 07/12/18 14:15 07/12/18 14:15 - Medical Decision Making Pt presents to the ED with c/o rectal bleeding for 1 month. Bright red blood while having BM. pt does strain to have BM but does take stool softener. Pt states he has yearly colonscopy due to hx of polyps. H/H stable. VSS. Spoke with Dr. Winter, GI who recommended outpatient follow up. Will have pt follow up in the next 2-3 days. Initially lab work with glucose in the 380s, repeat with glucose at 257. Advised to follow up with PCP due to hyperglycemia for further management and glycemic control. Return to the ED for any new or worsening symptoms Case discussed in detail with Dr. Naranjo who agrees with plan and outpatient follow up and discharge from the ED. - Differential Diagnosis Hemorrhoids, anal fissure, GI bleed Critical care attestation.: If time is entered above; I have spent that time in minutes in the direct care of this critically ill patient, excluding procedure time. ED Disposition Clinical Impression: Rectal bleeding, Hx of heart artery stent, History of CVA with residual deficit Disposition: - TO HOME OR SELFCARE Is pt being admited?: No Does the pt Need Aspirin: No Condition: Stable Instructions: Rectal Bleeding (ED) Additional Instructions: Follow up with Dr. Kramer, your primary care doctor in the next 2-3 days. Discuss with your doctor your elevation in your blood pressure and your blood sugar for further management and treatment. Follow up with Dr. Winter at [facility] in the next 2-3 days. Return to the emergency room for any new or worsening symptoms such as but not limited to abdominal pain, heavy rectal bleeding, dizziness, or lightheadedness. Referrals: ALIRIO KRAMER MD [Staff Physician] - 2-3 Days AFIA WINTER MD [Staff Physician] - 2-3 Days Forms: Accompanied Note Time of Disposition: 18:25 Print Language: SLOVAK
[2018-07-12] MEDS ORDERED: HumuLIN R IV ONE (18:02)
== END 2018-07-12 18:31 | disposition home or self-care (01) ==
LOC: ED 12:20
DX: K62.5 Hemorrhage of anus and rectum (principal); E11.9 Type 2 diabetes mellitus without complications; I10 Essential (primary) hypertension; E78.00 Pure hypercholesterolemia, unspecified; Z79.82 Long term (current) use of aspirin; Z95.1 Presence of aortocoronary bypass graft
CPT/HCPCS: 36415; 80053; 82962; 83690; 85025; 85610; 85730; 99283

== ENCOUNTER 2018-09-21 11:33 | Day surgery (SDC) | payer MEDICARE ==
[~2018-09-21 11:33] MED LIST: NACL 0.9% 1000 ML 1,000 ML IV SCH
--- NOTE | 2018-09-21 13:01 | Consultation ---
History of Present Illness Consult date: 09/21/18 Consult reason: pre op evaluation History of present illness: 78 year old male presenting for outpatient elective colonoscopy in order to evaluate BRBPR. Prior to procedure, heart rate was noted to be 35-38 bpm therefore I was called for evaluation. ECG is showing sinus dhaval with HR of 35, first degree AV block and RBBB as well as LAFB. His primary student support advisor has been closely following him for persistent sinus bradycardia. Last event monitor done 05/2018 was pertinent for a 3.6 sec pause. Patient denies chest pain, shortness of breath, syncope or dizziness. Past History Past Medical History: arrhythmia, CAD, diabetes, hypertension, hyperlipidemia Past Surgical History: CABG Social history: no significant social history Family history: no significant family history Medications and Allergies Allergies Allergy/AdvReac Type Severity Reaction Status Date / Time No Known Allergies Allergy Verified 09/17/18 09:28 Home Medications Medication Instructions Recorded Confirmed Last Taken Type Omeprazole 20 mg PO DAILY 11/09/16 09/17/18 09/17/18 History Pravastatin Sodium 40 mg PO DAILY 11/09/16 09/17/18 Unknown History Amlodipine Besylate 10 mg PO DAILY #30 tab 11/10/16 09/17/18 09/17/18 Rx Aspirin [Aspirin BABY CHEW TAB] 81 mg PO QDAY #30 tab.chew 11/10/16 09/17/18 Unknown Rx Glimepiride 2 OD DAILY 09/17/18 09/17/18 History Metoprolol 25 mg PO DAILY 09/17/18 09/17/18 09/17/18 History Sertraline 50 mg PO DAILY 09/17/18 09/17/18 09/17/18 History Turmeric 400 mg PO DAILY 09/17/18 09/17/18 Unknown History traMADol 50 mg PO DAILY 09/17/18 09/17/18 09/17/18 History Active Meds: Active Medications Sodium Chloride (Nacl 0.9% 1000 Ml) 1,000 mls @ 50 mls/hr IV DIRECT WHITNEY Review of Systems All systems: negative Physical Examination General appearance: no acute distress HEENT: Positive: PERRL Neck: Positive: neck supple Cardiac: Positive: Reg Rate and Rhythm, S1/S2 Lungs: Positive: Normal Exam Neuro: Positive: Grossly Intact Abdomen: Positive: Soft Extremities: Absent: edema Results - EKG Interpretation EKG shows: bradycardia EKG interpretations - Telemetry EKG Rhythm: Sinus Bradycardia AV and intraventricular conduction: Mob[place] I 2 AV block, right bundle branch block, left anterior fascicular Assessment and Plan Bradyarrhythmias Asymptomatic Sinus bradycardia 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
== END 2018-09-21 11:34 | disposition home or self-care (01) ==
LOC: GIO 11:33
PROVIDERS: ATTEND Student in an Organized Health Care Education/Training Program
DX: K62.5 Hemorrhage of anus and rectum (principal); I25.10 Atherosclerotic heart disease of native coronary artery without angina pectoris; E78.00 Pure hypercholesterolemia, unspecified; I10 Essential (primary) hypertension; K21.9 Gastro-esophageal reflux disease without esophagitis; Z53.8 Procedure and treatment not carried out for other reasons; Z79.899 Other long term (current) drug therapy; Z79.82 Long term (current) use of aspirin; Z86.010 Personal history of colon polyps; Z87.891 Personal history of nicotine dependence; Z95.5 Presence of coronary angioplasty implant and graft; Z98.890 Other specified postprocedural states; Z86.73 Personal history of transient ischemic attack (TIA), and cerebral infarction without residual deficits
CPT/HCPCS: 93005; 93010

== ENCOUNTER 2018-11-12 19:16 | Inpatient (IN) | payer MEDICARE ==
[2018-11-12] MEDS: NITROSTAT SL PRN ×3 (19:40→20:05)
[2018-11-12] MEDS ORDERED: NITROSTAT SL ONE (19:42)
[2018-11-12] MEDS ORDERED: MORPHINE ONE (20:39)
[2018-11-12] MEDS ORDERED: ZOFRAN ONE (20:39)
[2018-11-12] MEDS ORDERED: MORPHINE IV PRN ×2 (20:45→23:31)
--- NOTE | 2018-11-12 20:57 | Emergency Department Report ---
ED General Adult HPI - General Chief complaint: Chest Pain Stated complaint: CHEST PAIN Time Seen by Provider: 11/12/18 19:34 Source: patient Mode of arrival: Stretcher Limitations: No Limitations - History of Present Illness Initial comments: Patient presents to the emergency department for chief complaint of substernal chest pain that started 30 minutes prior to his arrival. The patient describes the pain as pressure-like without radiation. Patient has a history of coronary artery disease with 3 stents in the past. Patient also has a pacemaker. Patient has nausea and sweating. Patient states "I feel like I'm having a heart attack". -: Sudden Location: chest Radiation: non-radiation Severity scale (0 -10): 9 Quality: other (pressure-like) Improves with: none Worsens with: none Associated Symptoms: denies other symptoms Treatments Prior to Arrival: none - Related Data Home Medications Medication Instructions Recorded Confirmed Last Taken Omeprazole 20 mg PO DAILY 11/09/16 09/17/18 09/17/18 Pravastatin Sodium 40 mg PO DAILY 11/09/16 09/17/18 Unknown Glimepiride 2 OD DAILY 09/17/18 09/17/18 Metoprolol 25 mg PO DAILY 09/17/18 09/17/18 09/17/18 Sertraline 50 mg PO DAILY 09/17/18 09/17/18 09/17/18 Turmeric 400 mg PO DAILY 09/17/18 09/17/18 Unknown traMADol 50 mg PO DAILY 09/17/18 09/17/18 09/17/18 Previous Rx's Medication Instructions Recorded Last Taken Type Amlodipine Besylate 10 mg PO DAILY #30 tab 11/10/16 09/17/18 Rx Aspirin [Aspirin BABY CHEW TAB] 81 mg PO QDAY #30 tab.chew 11/10/16 Unknown Rx Allergies Allergy/AdvReac Type Severity Reaction Status Date / Time No Known Allergies Allergy Verified 09/17/18 09:28 ED Review of Systems ROS: Stated complaint: CHEST PAIN Other details as noted in HPI Comment: All other systems reviewed and negative Constitutional: denies: chills, fever Eyes: denies: eye pain, eye discharge, vision change ENT: denies: ear pain, throat pain Respiratory: denies: cough, shortness of breath, wheezing Cardiovascular: chest pain. 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) Hx Heart Attack/AMI: Yes Hx Diabetes: Yes Hx GERD: Yes Additional medical history: high cholesterol - Surgical History Hx Coronary Stent: Yes (X3) Additional Surgical History: prostate - Social History Smoking Status: Unknown if ever smoked Substance Use Type: None - Medications Home Medications: Home Medications Medication Instructions Recorded Confirmed Last Taken Type Omeprazole 20 mg PO DAILY 11/09/16 09/17/18 09/17/18 History Pravastatin Sodium 40 mg PO DAILY 11/09/16 09/17/18 Unknown History Amlodipine Besylate 10 mg PO DAILY #30 tab 11/10/16 09/17/18 09/17/18 Rx Aspirin [Aspirin BABY CHEW TAB] 81 mg PO QDAY #30 tab.chew 11/10/16 09/17/18 Unknown Rx Glimepiride 2 OD DAILY 09/17/18 09/17/18 History Metoprolol 25 mg PO DAILY 09/17/18 09/17/18 09/17/18 History Sertraline 50 mg PO DAILY 09/17/18 09/17/18 09/17/18 History Turmeric 400 mg PO DAILY 09/17/18 09/17/18 Unknown History traMADol 50 mg PO DAILY 09/17/18 09/17/18 09/17/18 History ED Physical Exam - General Limitations: No Limitations General appearance: alert, in no apparent distress, other (diaphoretic) - Head Head exam: Present: atraumatic, normocephalic - Eye Eye exam: Present: normal appearance - ENT ENT exam: Present: mucous membranes moist - Neck Neck exam: Present: normal inspection - Respiratory Respiratory exam: Present: normal lung sounds bilaterally. Absent: respiratory distress, wheezes, rales - Cardiovascular Cardiovascular Exam: Present: regular rate, normal rhythm. Absent: systolic murmur, diastolic murmur, rubs, gallop - GI/Abdominal GI/Abdominal exam: Present: soft, normal bowel sounds. Absent: distended, tenderness - Rectal Rectal exam: Present: deferred - Extremities Exam Extremities exam: Present: normal inspection - Back Exam Back exam: Present: normal inspection - Neurological Exam Neurological exam: Present: alert, oriented X3, CN II-XII intact. Absent: motor sensory deficit - Psychiatric Psychiatric exam: Present: normal affect, normal mood - Skin Skin exam: Present: warm, dry, intact, normal color. Absent: rash ED Course Vital Signs 11/12/18 19:26 Temperature 97.6 F Pulse Rate 65 Respiratory 16 Rate Blood Pressure 127/67 O2 Sat by Pulse 100 Oximetry ED Medical Decision Making - Lab Data Result diagrams: 11/12/18 21:05 11/12/18 21:05 - EKG Data -: EKG Interpreted by Me EKG shows normal: sinus rhythm - EKG Data Interpretation: nonspecific ST-T wave shahbaz, other (left bundle branch block) - Radiology Data Radiology results: report reviewed - Medical Decision Making EKG was sent to Dr. PENNINGTON with a return phone call at 8 PM and confirmed not to be a STEMI At 10 PM the patient states his chest pain free after nitroglycerin morphine Heparin drip initiated Spoke with at 10:30 PM and asked for the patient to be admitted to the hospitalist service and they will see patient as consult Critical Care Time: Yes Critical care time in (mins) excluding proc time.: 35 Critical care attestation.: If time is entered above; I have spent that time in minutes in the direct care of this critically ill patient, excluding procedure time. ED Disposition Clinical Impression: NSTEMI (non-ST elevated myocardial infarction) Disposition: OP ADMIT IP TO THIS HOSP Is pt being admited?: Yes Does the pt Need Aspirin: Yes Condition: Fair Referrals: ALIRIO KRAMER MD [Primary Care Provider] - 3-5 Days
--- NOTE | 2018-11-12 21:13 | XRay Report ---
CHEST 1 VIEW INDICATION / CLINICAL INFORMATION: Chest Pain. COMPARISON: None available. FINDINGS: SUPPORT DEVICES: Pacemaker device is stable in position. HEART / MEDIASTINUM: No significant abnormality. Prior sternotomy. LUNGS / PLEURA: No significant pulmonary or pleural abnormality. No pneumothorax. ADDITIONAL FINDINGS: Mild gastric distention with gas. IMPRESSION: 1. No acute findings. 2. Mild gaseous distention of the stomach. Signer Name: Lara Martinez MD Signed: 11/12/2018 9:08 PM Workstation Name: [id number]
[2018-11-12 21:19] LABS: Basophils # (Auto) 0.1 K/mm3 (0.0-0.1); Basophils % (Auto) 0.7 % (0.0-1.8); Eosinophils % (Auto) 0.4 % (0.0-4.3); Hematocrit 42.7 % (35.5-45.6); Hemoglobin 14.3 gm/dl (11.8-15.2); Lymphocytes % (Auto) 9.6 % (13.4-35.0); Mean Corpuscular HGB Conc 33 % (32-34); Mean Corpuscular Hemoglobin 31 pg (28-32); Mean Corpuscular Volume 92 fl (84-94); Monocytes # (Auto) 0.5 K/mm3 (0.0-0.8); Platelet Count 329 K/mm3 (140-440); Red Blood Count 4.66 M/mm3 (3.65-5.03); Red Cell Distribution Width 14.1 % (13.2-15.2)
[2018-11-12 21:35] LABS: Albumin 3.9 g/dL (3.9-5); Calcium 9.3 mg/dL (8.4-10.2)
[2018-11-12 21:40] LABS: INR 1.03 (0.87-1.13)
[2018-11-12 21:41] LABS: Partial Thromboplastin Time 24.6 Sec. (24.2-36.6)
[2018-11-12 21:54] LABS: Chol/HDL Ratio 6.28 %
[2018-11-12] MEDS ORDERED: HEPARIN 10,000 UNITS/10 ML IV ONE (21:55)
[2018-11-12] MEDS ORDERED: BABY ASPIRIN PO ONE (22:34)
[2018-11-12 22:49] LABS: Hematocrit 42.6 % (35.5-45.6); Hemoglobin 14.6 gm/dl (11.8-15.2)
[2018-11-12 22:59] LABS: INR 1.06 (0.87-1.13)
[2018-11-12 23:00] LABS: Partial Thromboplastin Time 48.3 Sec. (24.2-36.6)
[2018-11-12] MEDS: HEPARIN/ 0.45% NACL-25,000 UNIT/500 ML 25,000 UNIT/500 ML BAG IV SCH (23:19)
[2018-11-12] MEDS ORDERED: D50W (25GM) Syringe IV PRN (23:25)
[2018-11-12] MEDS ORDERED: TYLENOL PO PRN (23:27)
[2018-11-12] MEDS ORDERED: ZOFRAN IV PRN (23:31)
[2018-11-13] MEDS ORDERED: MORPHINE IV PRN (00:44)
[2018-11-13] MEDS: HumuLIN R SUB-Q SCH ×7 (01:10→22:15)
[2018-11-13 05:51] LABS: Creatine Kinase MB 113.7 ng/mL (0.0-4.0)
[2018-11-13] MEDS ORDERED: NITRO-BID 2% TP SCH (06:00)
--- NOTE | 2018-11-13 08:16 | Event Note ---
Date: 11/13/18 78 YEAR OLD ADMITTED FOR NSTEMI PATIENT HAS PMH OF CAD WITH STENT, HTN AND DIABETES HE IS ON I.V HEPARIN DRIP, NITRO PASTE AND PO ASPIRIN
[2018-11-13] MEDS: ASPIRIN PO SCH (09:30)
[2018-11-13] MEDS: ZESTRIL PO SCH (09:31)
[2018-11-13] MEDS: ZOLOFT PO SCH (09:31)
[2018-11-13] MEDS ORDERED: NON-FORMULARY (Metoprolol 25 MG) PO SCH (10:00)
[2018-11-13] MEDS ORDERED: LOPRESSOR PO SCH (10:00)
[2018-11-13] MEDS ORDERED: NON-FORMULARY (Pravastatin Sodium 40 MG) PO SCH (10:00)
[2018-11-13] MEDS ORDERED: PLAVIX PO ONE (11:02)
--- NOTE | 2018-11-13 11:11 | Consultation ---
History of Present Illness Consult date: 11/13/18 Consult reason: abnormal cardiac enzymes, chest pain History of present illness: The patient is a 78-year-old man with a history of coronary artery disease, a poor historian. By his report, he underwent 2 vessel coronary artery bypass, 3- 4 years ago at [place]. Other comorbidities include hypertension, diabetes, hyperlipidemia, and status post dual-chamber pacemaker. 2 years ago in this hospital he had a thallium stress test that showed an apical infarct with no reversible ischemia, echocardiogram reported left ventricular systolic function well preserved, ejection fraction 50-55%. He follows up with his primary order editor Dr. Freeman on a regular basis. He is admitted to the hospital at this time with chest pain, ECG was in AV paced rhythm, but cardiac enzymes subsequently were abnormal with elevated CK-MB of 14 %, and troponin of 2.4. Patient is currently chest pain-free on intravenous heparin. Past History Past Medical History: CAD Past Surgical History: CABG, Other (pacemaker) Medications and Allergies Allergies Allergy/AdvReac Type Severity Reaction Status Date / Time No Known Allergies Allergy Verified 09/17/18 09:28 Home Medications Medication Instructions Recorded Confirmed Last Taken Type Omeprazole 20 mg PO DAILY 11/09/16 09/17/18 09/17/18 History Pravastatin Sodium 40 mg PO DAILY 11/09/16 09/17/18 Unknown History Amlodipine Besylate 10 mg PO DAILY #30 tab 11/10/16 09/17/18 09/17/18 Rx Aspirin [Aspirin BABY CHEW TAB] 81 mg PO QDAY #30 tab.chew 11/10/16 09/17/18 Unknown Rx Glimepiride 2 OD DAILY 09/17/18 09/17/18 History Metoprolol 25 mg PO DAILY 09/17/18 09/17/18 09/17/18 History Sertraline 50 mg PO DAILY 09/17/18 09/17/18 09/17/18 History Turmeric 400 mg PO DAILY 09/17/18 09/17/18 Unknown History traMADol 50 mg PO DAILY 09/17/18 09/17/18 09/17/18 History Active Meds: Active Medications Acetaminophen (Tylenol) 650 mg PO Q4H PRN PRN Reason: Headache Aspirin (Aspirin) 325 mg PO QDAY [facility] Last Admin: 11/13/18 09:30 Dose: 325 mg Documented by: Atorvastatin Calcium (Lipitor) 40 mg PO QHS [facility] Clopidogrel Bisulfate (Plavix) 300 mg PO ONCE ONE Stop: 11/13/18 11:03 Clopidogrel Bisulfate (Plavix) 75 mg PO QDAY [facility] Dextrose (D50w (25gm) Syringe) 50 ml IV PRN PRN PRN Reason: Hypoglycemia Heparin Sodium/Sodium Chloride (Heparin/ 0.45% Nacl-25,000 Unit/500 Ml) 25,000 unit in 500 mls @ 20 mls/hr IV TITRATE [facility]; Protocol Last Titration: 11/13/18 06:32 Dose: 900 units/hr, 18 mls/hr Documented by: Sodium Chloride (Nacl 0.9% 500 Ml) 500 mls @ 50 mls/hr IV DIRECT [facility] Stop: 11/13/18 21:59 Insulin Human Regular (Humulin R) 0 units SUB-Q Q4HR [facility]; Protocol Last Admin: 11/13/18 06:33 Dose: 2 units Documented by: Lisinopril (Zestril) 5 mg PO QDAY [facility] Last Admin: 11/13/18 09:31 Dose: 5 mg Documented by: Metoprolol Tartrate (Lopressor) 25 mg PO Q8H [facility] Morphine Sulfate (Morphine) 2 mg IV Q3H PRN PRN Reason: Pain, Moderate (4-6) Nitroglycerin (Nitrostat) 0.4 mg SL .Q5MIN PRN PRN Reason: Chest Pain Last Admin: 11/12/18 20:05 Dose: 0.4 mg Documented by: Nitroglycerin (Nitro-Bid 2%) 1 inch TP QIDNTG [facility]; Protocol Ondansetron HCl (Zofran) 4 mg IV Q8H PRN PRN Reason: Nausea And Vomiting Last Admin: 11/12/18 21:00 Dose: 4 mg Documented by: Sertraline HCl (Zoloft) 50 mg PO QDAY [facility] Last Admin: 11/13/18 09:31 Dose: 50 mg Documented by: Review of Systems Cardiovascular: chest pain, shortness of breath, no orthopnea, no palpitations, no rapid/irregular heart beat, no edema, no syncope, no lightheadedness Physical Examination Vital Signs Pulse Ox 96 11/12/18 19:20 General appearance: no acute distress HEENT: Positive: PERRL Neck: Positive: neck supple Cardiac: Positive: Reg Rate and Rhythm Lungs: Positive: Decreased Breath Sounds Neuro: Positive: Grossly Intact Abdomen: Positive: Soft Male genitourinary: Positive: deferred Skin: Positive: Clear Extremities: Absent: edema Results 11/12/18 22:42 11/12/18 21:05 Cardiac Enzymes 11/12/18 11/13/18 11/13/18 Range/Units 21:05 00:20 05:21 AST 44 H (5-40) units/L CK-MB (CK-2) 82.0 H 113.7 H (0.0-4.0) ng/mL Coagulation 11/12/18 11/12/18 Range/Units 21:05 22:42 PT 13.2 13.5 (12.2-14.9) Sec. INR 1.03 1.06 (0.87-1.13) APTT 24.6 48.3 H (24.2-36.6) Sec. Lipids 11/12/18 Range/Units 21:05 Triglycerides 260 H (2-149) mg/dL Cholesterol 176 (50-199) mg/dL HDL Cholesterol 28 L (40-59) mg/dL Cholesterol/HDL Ratio 6.28 % CBC 11/12/18 11/12/18 Range/Units 21:05 22:42 WBC 10.2 (4.5-11.0) K/mm3 RBC 4.66 (3.65-5.03) M/mm3 Hgb 14.3 14.6 (11.8-15.2) gm/dl Hct 42.7 42.6 (35.5-45.6) % Plt Count 329 334 (140-440) K/mm3 Lymph # 1.0 L (1.2-5.4) K/mm3 [place] # 0.5 (0.0-0.8) K/mm3 Eos # 0.0 (0.0-0.4) K/mm3 Baso # 0.1 (0.0-0.1) K/mm3 Comprehensive Metabolic Panel 11/12/18 Range/Units 21:05 Sodium 133 L (137-145) mmol/L Potassium 4.8 (3.6-5.0) mmol/L Chloride 98.6 (98-107) mmol/L Carbon Dioxide 22 (22-30) mmol/L BUN 20 (9-20) mg/dL Creatinine 1.4 (0.8-1.5) mg/dL Glucose 276 H (75-100) mg/dL Calcium 9.3 (8.4-10.2) mg/dL AST 44 H (5-40) units/L ALT 53 (7-56) units/L Alkaline Phosphatase 75 (35-129) units/L Total Protein 7.4 (6.3-8.2) g/dL Albumin 3.9 (3.9-5) g/dL EKG interpretations - Telemetry EKG Rhythm: Paced Assessment and Plan - Patient Problems (1) NSTEMI (non-ST elevated myocardial infarction) Current Visit: Yes Status: Acute Plan to address problem: 78-year-old man with a previous two-vessel bypass, presents with chest pain and elevated cardiac isoenzymes consistent with a non-ST elevation myocardial infarction. He is currently chest pain-free on intravenous heparin. We will recommend an early invasive strategy, schedule on Thursday morning. We'll request the patient's coronary bypass records from [place].
[2018-11-13] MEDS: LOPRESSOR PO SCH ×2 (11:36→20:35)
[2018-11-13] MEDS ORDERED: NACL 0.9% 500 ML 500 ML IV SCH (12:00)
--- NOTE | 2018-11-13 12:20 | History and Physical Report ---
CHIEF COMPLAINT: Chest pain. HISTORY OF PRESENT ILLNESS: The patient is a 78-year-old male who started having substernal chest pain that started about 30 minutes prior to arrival. Pain is pressure like in nature that does not radiate and was associated with nausea with no vomiting. There is also association with diaphoresis and dizziness and the patient denied history of shortness of breath and presented for evaluation. 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 Also the patient has past medical history of coronary artery disease status post myocardial infarction. The patient has past medical history of diabetes mellitus, gastroesophageal reflux disease, hypercholesterolemia. PAST SURGICAL HISTORY: Pertinent for prostate surgery and stent placement x 3. FAMILY HISTORY: Family history was reviewed and noncontributory. SOCIAL HISTORY: The patient does not smoke, does not drink alcohol and does not use illicit drugs. MEDICATIONS: The patient is on omeprazole 20 mg by mouth daily, pravastatin 40 mg by mouth daily, amlodipine 10 mg by mouth daily, chewable baby aspirin 81 mg daily. The patient is on glimepiride 2 mg daily and metoprolol 25 mg by mouth daily as well as sertraline 50 mg by mouth daily, turmeric 400 mg daily as well as tramadol 50 mg by mouth daily. ALLERGIES: There are no known drug allergies. REVIEW OF SYSTEMS: CONSTITUTIONAL: There is no fever but there is diaphoresis and no chills. HEENT: There is no headache or sore throat. CARDIOVASCULAR SYSTEM: Chest pain is present. No orthopnea. RESPIRATORY SYSTEM: There is no shortness of breath or cough. GASTROINTESTINAL SYSTEM: There is nausea with no vomiting. No abdominal pain, diarrhea or constipation. NEUROLOGICAL SYSTEM: There is no numbness but there is dizziness and no altered mental status. MUSCULOSKELETAL SYSTEM: There is no joint pain or swelling. DERMATOLOGICAL SYSTEM: There is no skin rash or itching. GENITOURINARY SYSTEM: There is no dysuria, hematuria or flank pain. Rest of system review is normal. PHYSICAL EXAMINATION: GENERAL: At the time of exam, the patient was found to be alert, oriented x 3 and not in acute distress. VITAL SIGNS: Show temperature of 97.6 degrees Fahrenheit, pulse of 65, respirations 16, blood pressure 127/67, O2 sat of 100% on room air. HEENT: Show pupils to be equal, round, reactive to light and accommodation. Extraocular muscles are intact. NECK: Neck is supple, with no JVD or carotid bruit. CARDIOVASCULAR SYSTEM: Show normal first and second heart sounds, with no gallops or murmurs. RESPIRATORY SYSTEM: Show good air entry on both sides of the lungs, with no abnormal breath sounds. GASTROINTESTINAL SYSTEM: Show abdomen to be full, soft, nontender, with no organomegaly or rigidity. NEUROLOGICAL: Neuro exam shows no focal deficit. MUSCULOSKELETAL SYSTEM: Show no joint swelling or tenderness. DERMATOLOGICAL SYSTEM: Show no skin rash. GENITOURINARY SYSTEM: Showing no costovertebral angle tenderness. PERTINENT LABORATORY AND IMAGING STUDIES: The patient had one-view chest x-ray that shows no acute findings and shows mild gaseous distention of the stomach. LABORATORY RESULTS: The patient had CBC done with normal hemoglobin, normal hematocrit and with CBC differential showing elevated segmental neutrophil count of 84.3%. Coagulation studies show elevated PTT of 48.3 and the patient's chemistry shows low sodium level of 133. Elevated blood glucose level of 276. The patient's cardiac enzymes show elevated total CPK with elevated CK-MB of 82 and elevated CK percentage index of 13.8 and high troponin level of 0.10. Rest of the patient's lab show high triglyceride of 216. DIAGNOSIS: Non-ST elevation myocardial infarction. PLAN OF CARE: 1. The patient will be admitted to telemetry. 2. The patient will have cardiac enzymes involving troponin, total CK and CK-MB check every 6 hours x 2 more levels. 3. The patient will remain n.p.o. until seen by the behavioral scientist. 4. The patient will continue Cardiology consult with Dr. Cory Benito at the [facility] requested by the Emergency Room physician. 5. The patient will continue IV heparin started in the Emergency Room until he is seen by the behavioral scientist. 6. The patient will be on Tylenol 650 mg by mouth every 4 hours for fever and headache and aspirin 325 mg by mouth daily. 7. The patient will be on IV morphine 2 mg every 3 hours as needed for pain and will be on nitro paste half inch to anterior chest wall t.i.d. and also will be on Nitrostat 0.4 mg sublingual every 5 minutes as needed for breakthrough chest pain. 8. The patient will be on IV Zofran 4 mg every 8 hours as needed for nausea and vomiting. 9. The patient will be on oxygen by nasal cannula 2 liters per minute. 10. The patient will remain n.p.o. until seen by the behavioral scientist. 11. The patient will be on Accu-Chek q. 4 hours followed by low-dose sliding scale using regular insulin coverage. JOB# [id number] OCN/NTS MTDD
[2018-11-13] MEDS: NITRO-BID 2% TP SCH ×2 (14:31→19:00)
--- NOTE | 2018-11-13 15:26 | Progress Note ---
Assessment and Plan Assessment and plan: --Non-ST elevation [place]; Aspirin, beta blockers, sydney inhibitors, nitrates, statins Morphine, heparin drip and supportive care Echocardiogram for function ejection fraction Cardiology evaluation noted appreciated --History of coronary artery disease status post CABG Resume all home medications Follow cardiology recommendations --Hypertension; well controlled Continue current antihypertensives --Diabetes mellitus; moderate control Accu-Chek sliding scale coverage and ADA diet Oral hypoglycemics as needed --Dyslipidemia; statin, low-cholesterol diet --History of depression; continue Zoloft --DVT prophylaxis; heparin drip --Full CODE STATUS Monitor closely and adjust management as needed Follow-up cardiology evaluation and recommendations Plan of care is reviewed with the patient and his at the bedside History Interval history: A pleasant 78-year-old male patient with multiple medical problems was admitted through emergency room with chest pain and elevated cardiac enzymes Today patient complains of intermittent chest pain Mild shortness of breath denies nausea vomiting or diaphoresis AAO 3, Vital signs reviewed Hospitalist Physical - Constitutional Vitals: Temp Pulse Resp BP Pulse Ox 98.0 F 64 14 115/62 95 11/13/18 08:00 11/13/18 14:31 11/13/18 10:00 11/13/18 14:31 11/13/18 14:50 General appearance: Present: no acute distress, well-nourished - EENT Eyes: Present: PERRL, EOM intact - Neck Neck: Present: supple, normal ROM - Respiratory Respiratory effort: normal Respiratory: bilateral: diminished, negative: rales, rhonchi, wheezing - Cardiovascular Rhythm: regular Heart Sounds: Present: S1 & S2 - Extremities Extremities: no ischemia, No edema - Abdominal General gastrointestinal: soft, non-tender, non-distended, normal bowel sounds - Integumentary Integumentary: Present: clear, warm - Psychiatric Psychiatric: appropriate mood/affect, cooperative - Neurologic Neurologic: CNII-XII intact, moves all extremities Results - Labs CBC & Chem 7: 11/14/18 04:26 11/14/18 04:26 Labs: Laboratory Last Values WBC 10.2 K/mm3 (4.5-11.0) 11/12/18 21:05 RBC 4.66 M/mm3 (3.65-5.03) 11/12/18 21:05 Hgb 14.6 gm/dl (11.8-15.2) 11/12/18 22:42 Hct 42.6 % (35.5-45.6) 11/12/18 22:42 MCV 92 fl (84-94) 11/12/18 21:05 MCH 31 pg (28-32) 11/12/18 21:05 MCHC 33 % (32-34) 11/12/18 21:05 RDW 14.1 % (13.2-15.2) 11/12/18 21:05 Plt Count 334 K/mm3 (140-440) 11/12/18 22:42 Lymph % (Auto) 9.6 % (13.4-35.0) L 11/12/18 21:05 [place] % (Auto) 5.0 % (0.0-7.3) 11/12/18 21:05 Eos % (Auto) 0.4 % (0.0-4.3) 11/12/18 21:05 Baso % (Auto) 0.7 % (0.0-1.8) 11/12/18 21:05 Lymph # 1.0 K/mm3 (1.2-5.4) L 11/12/18 21:05 [place] # 0.5 K/mm3 (0.0-0.8) 11/12/18 21:05 Eos # 0.0 K/mm3 (0.0-0.4) 11/12/18 21:05 Baso # 0.1 K/mm3 (0.0-0.1) 11/12/18 21:05 Seg Neutrophils % 84.3 % (40.0-70.0) H 11/12/18 21:05 Seg Neutrophils # 8.6 K/mm3 (1.8-7.7) H 11/12/18 21:05 PT 13.5 Sec. (12.2-14.9) 11/12/18 22:42 INR 1.06 (0.87-1.13) 11/12/18 22:42 APTT 48.3 Sec. (24.2-36.6) H 11/12/18 22:42 Heparin Anti-Xa Level 0.33 U.I./ml (0.3-0.7) 11/13/18 12:05 Sodium 133 mmol/L (137-145) L 11/12/18 21:05 Potassium 4.8 mmol/L (3.6-5.0) 11/12/18 21:05 Chloride 98.6 mmol/L (98-107) 11/12/18 21:05 Carbon Dioxide 22 mmol/L (22-30) 11/12/18 21:05 17 mmol/L 11/12/18 21:05 BUN 20 mg/dL (9-20) 11/12/18 21:05 1.4 mg/dL (0.8-1.5) 11/12/18 21:05 Estimated GFR 49 ml/min 11/12/18 21:05 14 % 11/12/18 21:05 Glucose 276 mg/dL (75-100) H 11/12/18 21:05 POC Glucose 217 (70-105) H 11/13/18 14:36 Calcium 9.3 mg/dL (8.4-10.2) 11/12/18 21:05 0.30 mg/dL (0.1-1.2) 11/12/18 21:05 AST 44 units/L (5-40) H 11/12/18 21:05 ALT 53 units/L (7-56) 11/12/18 21:05 75 units/L (35-129) 11/12/18 21:05 786 units/L (55-170) H 11/13/18 05:21 CK-MB (CK-2) 113.7 ng/mL (0.0-4.0) H 11/13/18 05:21 CK-MB (CK-2) Rel Index 14.4 (0-4) H 11/13/18 05:21 2.430 ng/mL (0.00-0.029) H* D 11/13/18 05:21 7.4 g/dL (6.3-8.2) 11/12/18 21:05 3.9 g/dL (3.9-5) 11/12/18 21:05 1.1 % 11/12/18 21:05 Triglycerides 260 mg/dL (2-149) H 11/12/18 21:05 Cholesterol 176 mg/dL (50-199) 11/12/18 21:05 104 mg/dL (50-130) 11/12/18 21:05 28 mg/dL (40-59) L 11/12/18 21:05 6.28 % 11/12/18 21:05 56 units/L (13-60) 11/12/18 21:05 Active Medications - Current Medications Current Medications: Generic Name Dose Route Start Last Admin Trade Name Freq PRN Reason Stop Dose Admin Acetaminophen 650 mg 11/12/18 23:27 Tylenol PO Q4H PRN Headache Aspirin 325 mg 11/13/18 10:00 11/13/18 09:30 Aspirin PO 325 mg QDAY [facility] Administration Atorvastatin Calcium 40 mg 11/13/18 22:00 Lipitor PO QHS [facility] Clopidogrel Bisulfate 75 mg 11/14/18 10:00 Plavix PO QDAY [facility] Dextrose 50 ml 11/12/18 23:25 D50w (25gm) Syringe IV PRN PRN Hypoglycemia Heparin Sodium/Sodium Chloride 25,000 unit in 500 mls @ 20 mls/hr 11/12/18 22:00 11/13/18 06:32 Heparin/ 0.45% Nacl-25,000 Unit/500 Ml IV 900 units/hr TITRATE [facility] 18 mls/hr Titration Protocol 1,000 UNITS/HR Sodium Chloride 500 mls @ 50 mls/hr 11/13/18 12:00 Nacl 0.9% 500 Ml IV 11/13/18 21:59 DIRECT [facility] Insulin Human Regular 0 units 11/12/18 23:45 11/13/18 14:34 Humulin R SUB-Q 2 units Q4HR [facility] Administration Protocol Lisinopril 5 mg 11/13/18 10:00 11/13/18 09:31 Zestril PO 5 mg QDAY [facility] Administration Metoprolol Tartrate 25 mg 11/13/18 12:00 11/13/18 11:36 Lopressor PO Not Given Q8H [facility] Morphine Sulfate 2 mg 11/12/18 23:31 Morphine IV Q3H PRN Pain, Moderate (4-6) Nitroglycerin 0.4 mg 11/12/18 19:41 11/12/18 20:05 Nitrostat SL 0.4 mg .Q5MIN PRN Administration Chest Pain Nitroglycerin 1 inch 11/13/18 14:00 11/13/18 14:31 Nitro-Bid 2% TP Not Given QIDNTG [facility] Protocol Ondansetron HCl 4 mg 11/12/18 23:31 11/12/18 21:00 Zofran IV 4 mg Q8H PRN Administration Nausea And Vomiting Sertraline HCl 50 mg 11/13/18 10:00 11/13/18 09:31 Zoloft PO 50 mg QDAY [facility] Administration
[2018-11-14] MEDS: HEPARIN/ 0.45% NACL-25,000 UNIT/500 ML 25,000 UNIT/500 ML BAG IV SCH ×2 (01:44→15:00)
[2018-11-14] MEDS: LOPRESSOR PO SCH ×3 (04:34→21:10)
[2018-11-14 04:43] LABS: Basophils # (Auto) 0.1 K/mm3 (0.0-0.1); Basophils % (Auto) 1.4 % (0.0-1.8); Eosinophils # (Auto) 0.4 K/mm3 (0.0-0.4); Eosinophils % (Auto) 5.1 % (0.0-4.3); Hematocrit 41.8 % (35.5-45.6); Hemoglobin 14.2 gm/dl (11.8-15.2); Lymphocytes # (Auto) 1.4 K/mm3 (1.2-5.4); Lymphocytes % (Auto) 18.8 % (13.4-35.0); Mean Corpuscular HGB Conc 34 % (32-34); Mean Corpuscular Hemoglobin 31 pg (28-32); Mean Corpuscular Volume 93 fl (84-94); Monocytes # (Auto) 0.7 K/mm3 (0.0-0.8); Monocytes % (Auto) 8.5 % (0.0-7.3); Red Blood Count 4.52 M/mm3 (3.65-5.03); Red Cell Distribution Width 14.4 % (13.2-15.2)
[2018-11-14 04:46] LABS: Platelet Count 293 K/mm3 (140-440)
[2018-11-14 05:04] LABS: Calcium 8.7 mg/dL (8.4-10.2)
[2018-11-14] MEDS: NITRO-BID 2% TP SCH ×4 (06:39→18:45)
[2018-11-14] MEDS: HumuLIN R SUB-Q SCH ×3 (06:40→18:41)
--- NOTE | 2018-11-14 09:51 | Progress Note ---
Assessment and Plan Assessment and plan: --Non-ST elevation [place]; Aspirin, beta blockers, sydney inhibitors, nitrates, statins Morphine, heparin drip and supportive care Echocardiogram for LV function /ejection fraction Cardiology following, possible heart cath tomorrow --History of coronary artery disease status post CABG Resume all home medications Follow cardiology recommendations --Hypertension; well controlled Continue current antihypertensives --Diabetes mellitus; moderate control Accu-Chek sliding scale coverage and ADA diet Oral hypoglycemics as needed --Dyslipidemia; statin, low-cholesterol diet --History of depression; continue Zoloft --DVT prophylaxis; heparin drip --Full CODE STATUS Monitor closely and adjust management as needed History Interval history: Patient seen and examined medical records reviewed Patient feels better denies any chest pain or shortness of breath Vital signs reviewed Hospitalist Physical - Constitutional Vitals: Temp Pulse Resp BP Pulse Ox 98.1 F 61 14 109/66 98 11/14/18 07:43 11/14/18 07:43 11/14/18 07:43 11/14/18 07:43 11/14/18 07:43 General appearance: Present: no acute distress, well-nourished - EENT Eyes: Present: PERRL, EOM intact - Neck Neck: Present: supple, normal ROM - Respiratory Respiratory effort: normal Respiratory: bilateral: diminished, negative: rales, rhonchi, wheezing - Cardiovascular Rhythm: regular Heart Sounds: Present: S1 & S2 - Extremities Extremities: no ischemia, No edema - Abdominal General gastrointestinal: soft, non-tender, non-distended, normal bowel sounds - Integumentary Integumentary: Present: clear, warm - Psychiatric Psychiatric: appropriate mood/affect, cooperative - Neurologic Neurologic: CNII-XII intact, moves all extremities Results - Labs CBC & Chem 7: 11/14/18 04:26 11/14/18 04:26 Labs: Laboratory Last Values WBC 7.7 K/mm3 (4.5-11.0) 11/14/18 04:26 RBC 4.52 M/mm3 (3.65-5.03) 11/14/18 04:26 Hgb 14.2 gm/dl (11.8-15.2) 11/14/18 04:26 Hct 41.8 % (35.5-45.6) 11/14/18 04:26 MCV 93 fl (84-94) 11/14/18 04:26 MCH 31 pg (28-32) 11/14/18 04:26 MCHC 34 % (32-34) 11/14/18 04:26 RDW 14.4 % (13.2-15.2) 11/14/18 04:26 Plt Count 293 K/mm3 (140-440) 11/14/18 04:26 Lymph % (Auto) 18.8 % (13.4-35.0) 11/14/18 04:26 [place] % (Auto) 8.5 % (0.0-7.3) H 11/14/18 04:26 Eos % (Auto) 5.1 % (0.0-4.3) H 11/14/18 04:26 Baso % (Auto) 1.4 % (0.0-1.8) 11/14/18 04:26 Lymph # 1.4 K/mm3 (1.2-5.4) 11/14/18 04:26 [place] # 0.7 K/mm3 (0.0-0.8) 11/14/18 04:26 Eos # 0.4 K/mm3 (0.0-0.4) 11/14/18 04:26 Baso # 0.1 K/mm3 (0.0-0.1) 11/14/18 04:26 Seg Neutrophils % 66.2 % (40.0-70.0) 11/14/18 04:26 Seg Neutrophils # 5.1 K/mm3 (1.8-7.7) 11/14/18 04:26 PT 13.5 Sec. (12.2-14.9) 11/12/18 22:42 INR 1.06 (0.87-1.13) 11/12/18 22:42 APTT 48.3 Sec. (24.2-36.6) H 11/12/18 22:42 Heparin Anti-Xa Level 0.33 U.I./ml (0.3-0.7) 11/13/18 12:05 Sodium 137 mmol/L (137-145) 11/14/18 04:26 Potassium 4.7 mmol/L (3.6-5.0) 11/14/18 04:26 Chloride 102.8 mmol/L (98-107) 11/14/18 04:26 Carbon Dioxide 24 mmol/L (22-30) 11/14/18 04:26 15 mmol/L 11/14/18 04:26 BUN 20 mg/dL (9-20) 11/14/18 04:26 1.3 mg/dL (0.8-1.5) 11/14/18 04:26 Estimated GFR 54 ml/min 11/14/18 04:26 15 % 11/14/18 04:26 Glucose 215 mg/dL (75-100) H 11/14/18 04:26 POC Glucose 164 (70-105) H 11/14/18 06:38 Calcium 8.7 mg/dL (8.4-10.2) 11/14/18 04:26 0.30 mg/dL (0.1-1.2) 11/12/18 21:05 AST 44 units/L (5-40) H 11/12/18 21:05 ALT 53 units/L (7-56) 11/12/18 21:05 75 units/L (35-129) 11/12/18 21:05 786 units/L (55-170) H 11/13/18 05:21 CK-MB (CK-2) 113.7 ng/mL (0.0-4.0) H 11/13/18 05:21 CK-MB (CK-2) Rel Index 14.4 (0-4) H 11/13/18 05:21 2.430 ng/mL (0.00-0.029) H* D 11/13/18 05:21 7.4 g/dL (6.3-8.2) 11/12/18 21:05 3.9 g/dL (3.9-5) 11/12/18 21:05 1.1 % 11/12/18 21:05 Triglycerides 260 mg/dL (2-149) H 11/12/18 21:05 Cholesterol 176 mg/dL (50-199) 11/12/18 21:05 104 mg/dL (50-130) 11/12/18 21:05 28 mg/dL (40-59) L 11/12/18 21:05 6.28 % 11/12/18 21:05 56 units/L (13-60) 11/12/18 21:05 Active Medications - Current Medications Current Medications: Generic Name Dose Route Start Last Admin Trade Name Freq PRN Reason Stop Dose Admin Acetaminophen 650 mg 11/12/18 23:27 Tylenol PO Q4H PRN Headache Aspirin 325 mg 11/13/18 10:00 11/13/18 09:30 Aspirin PO 325 mg QDAY [facility] Administration Atorvastatin Calcium 40 mg 11/13/18 22:00 11/13/18 22:15 Lipitor PO 40 mg QHS [facility] Administration Clopidogrel Bisulfate 75 mg 11/14/18 10:00 Plavix PO QDAY [facility] Dextrose 50 ml 11/12/18 23:25 D50w (25gm) Syringe IV PRN PRN Hypoglycemia Heparin Sodium/Sodium Chloride 25,000 unit in 500 mls @ 20 mls/hr 11/12/18 22:00 11/14/18 01:44 Heparin/ 0.45% Nacl-25,000 Unit/500 Ml IV 900 units/hr TITRATE [facility] 18 mls/hr Administration Protocol 1,000 UNITS/HR Insulin Human Regular 0 units 11/14/18 06:00 11/14/18 06:40 Humulin R SUB-Q 1 units Q6HR [facility] Administration Protocol Lisinopril 5 mg 11/13/18 10:00 11/13/18 09:31 Zestril PO 5 mg QDAY [facility] Administration Metoprolol Tartrate 25 mg 11/13/18 12:00 11/14/18 04:34 Lopressor PO 25 mg Q8H [facility] Administration Morphine Sulfate 2 mg 11/12/18 23:31 Morphine IV Q3H PRN Pain, Moderate (4-6) Nitroglycerin 0.4 mg 11/12/18 19:41 11/12/18 20:05 Nitrostat SL 0.4 mg .Q5MIN PRN Administration Chest Pain Nitroglycerin 1 inch 11/13/18 14:00 11/14/18 06:39 Nitro-Bid 2% TP 1 inch QIDNTG [facility] Administration Protocol Ondansetron HCl 4 mg 11/12/18 23:31 11/12/18 21:00 Zofran IV 4 mg Q8H PRN Administration Nausea And Vomiting Sertraline HCl 50 mg 11/13/18 10:00 11/13/18 09:31 Zoloft PO 50 mg QDAY [facility] Administration
[2018-11-14] MEDS: ZOLOFT PO SCH (10:41)
[2018-11-14] MEDS: ASPIRIN PO SCH (10:41)
[2018-11-14] MEDS: ZESTRIL PO SCH (10:41)
[2018-11-14] MEDS: PLAVIX PO SCH (10:41)
--- NOTE | 2018-11-14 14:53 | Progress Note ---
Assessment and Plan - Patient Problems (1) NSTEMI (non-ST elevated myocardial infarction) Current Visit: Yes Status: Acute Plan to address problem: Non-ST elevation myocardial infarction, on intravenous heparin and oral antiplatelet agents, cardiac catheterization with graft anatomy, in the morning. Subjective Date of service: 11/14/18 Interval history: Patient is comfortable, chest pain free, awaiting cardiac catheterization with graft anatomy scheduled for tomorrow morning. Objective Vital Signs Temp Pulse Pulse Pulse Resp BP Pulse Ox 11/14/18 13:35 60 93/53 11/14/18 13:03 98.3 F 60 14 93/53 92 11/14/18 10:41 61 109/66 11/14/18 10:04 99 11/14/18 10:00 62 11/14/18 07:43 98.1 F 61 14 109/66 98 11/14/18 06:39 64 117/75 11/14/18 06:37 117/75 11/14/18 04:34 61 118/63 11/14/18 03:57 98.0 F 61 20 118/63 97 11/14/18 00:07 98.0 F 65 18 104/54 96 11/13/18 22:08 64 64 18 96 11/13/18 20:35 68 117/62 11/13/18 19:48 64 11/13/18 19:36 98.6 F 58 L 18 117/62 96 - Physical Examination General: No Apparent Distress HEENT: Positive: PERRL Neck: Positive: neck supple Cardiac: Positive: Reg Rate and Rhythm Lungs: Positive: Decreased Breath Sounds Neuro: Positive: Grossly Intact Abdomen: Positive: Soft Skin: Positive: Clear Extremities: Absent: edema - Labs and Meds CBC 11/14/18 Range/Units 04:26 WBC 7.7 (4.5-11.0) K/mm3 RBC 4.52 (3.65-5.03) M/mm3 Hgb 14.2 (11.8-15.2) gm/dl Hct 41.8 (35.5-45.6) % Plt Count 293 (140-440) K/mm3 Lymph # 1.4 (1.2-5.4) K/mm3 [place] # 0.7 (0.0-0.8) K/mm3 Eos # 0.4 (0.0-0.4) K/mm3 Baso # 0.1 (0.0-0.1) K/mm3 Comprehensive Metabolic Panel 11/14/18 Range/Units 04:26 Sodium 137 (137-145) mmol/L Potassium 4.7 (3.6-5.0) mmol/L Chloride 102.8 (98-107) mmol/L Carbon Dioxide 24 (22-30) mmol/L BUN 20 (9-20) mg/dL Creatinine 1.3 (0.8-1.5) mg/dL Glucose 215 H (75-100) mg/dL Calcium 8.7 (8.4-10.2) mg/dL
[2018-11-15] MEDS: LOPRESSOR PO SCH ×3 (04:01→21:58)
[2018-11-15] MEDS: HEPARIN/ 0.45% NACL-25,000 UNIT/500 ML 25,000 UNIT/500 ML BAG IV SCH (04:18)
[2018-11-15] MEDS: NITRO-BID 2% TP SCH ×5 (06:07→17:56)
[2018-11-15 06:38] LABS: INR TNR (0.87-1.13); Partial Thromboplastin Time TNR Sec. (24.2-36.6)
[2018-11-15] MEDS: HumuLIN R SUB-Q SCH ×5 (06:50→21:53)
--- NOTE | 2018-11-15 08:05 | Progress Note ---
Assessment and Plan Assessment and plan: --Non-ST elevation [place]; Aspirin, beta blockers, [place] inhibitors, nitrates, statins Morphine, heparin drip and supportive care Echocardiogram for LV function /ejection fraction Cardiology following, heart cath today --History of coronary artery disease status post CABG Resume all home medications Follow cardiology recommendations --Hypertension; well controlled Continue current antihypertensives --Diabetes mellitus; moderate control Accu-Chek sliding scale coverage and ADA diet Oral hypoglycemics as needed --Dyslipidemia; statin, low-cholesterol diet --History of depression; continue Zoloft --DVT prophylaxis; heparin drip --Full CODE STATUS Monitor closely and adjust management as needed History Interval history: Patient seen and examined this morning , patient's chart reviewed No overnight events reported by the nursing Patient denies chest pain or shortness of breath Scheduled for heart cath today Hospitalist Physical - Constitutional Vitals: Temp Pulse Resp BP Pulse Ox 98.0 F 61 18 116/58 95 11/15/18 07:41 11/15/18 07:41 11/15/18 07:41 11/15/18 07:41 11/15/18 07:41 General appearance: Present: no acute distress, well-nourished - EENT Eyes: Present: PERRL, EOM intact - Neck Neck: Present: supple, normal ROM - Respiratory Respiratory effort: normal Respiratory: bilateral: diminished, negative: rales, rhonchi, wheezing - Cardiovascular Rhythm: regular Heart Sounds: Present: S1 & S2 - Extremities Extremities: no ischemia, No edema - Abdominal General gastrointestinal: soft, non-tender, non-distended, normal bowel sounds - Integumentary Integumentary: Present: clear, warm - Psychiatric Psychiatric: appropriate mood/affect, cooperative - Neurologic Neurologic: CNII-XII intact, moves all extremities Results - Labs CBC & Chem 7: 11/14/18 04:26 11/14/18 04:26 Labs: Laboratory Last Values WBC 7.7 K/mm3 (4.5-11.0) 11/14/18 04:26 RBC 4.52 M/mm3 (3.65-5.03) 11/14/18 04:26 Hgb 14.2 gm/dl (11.8-15.2) 11/14/18 04:26 Hct 41.8 % (35.5-45.6) 11/14/18 04:26 MCV 93 fl (84-94) 11/14/18 04:26 MCH 31 pg (28-32) 11/14/18 04:26 MCHC 34 % (32-34) 11/14/18 04:26 RDW 14.4 % (13.2-15.2) 11/14/18 04:26 Plt Count 293 K/mm3 (140-440) 11/14/18 04:26 Lymph % (Auto) 18.8 % (13.4-35.0) 11/14/18 04:26 [place] % (Auto) 8.5 % (0.0-7.3) H 11/14/18 04:26 Eos % (Auto) 5.1 % (0.0-4.3) H 11/14/18 04:26 Baso % (Auto) 1.4 % (0.0-1.8) 11/14/18 04:26 Lymph # 1.4 K/mm3 (1.2-5.4) 11/14/18 04:26 [place] # 0.7 K/mm3 (0.0-0.8) 11/14/18 04:26 Eos # 0.4 K/mm3 (0.0-0.4) 11/14/18 04:26 Baso # 0.1 K/mm3 (0.0-0.1) 11/14/18 04:26 Seg Neutrophils % 66.2 % (40.0-70.0) 11/14/18 04:26 Seg Neutrophils # 5.1 K/mm3 (1.8-7.7) 11/14/18 04:26 PT TNR 11/15/18 06:01 INR TNR 11/15/18 06:01 APTT TNR 11/15/18 06:01 Heparin Anti-Xa Level 0.28 U.I./ml (0.3-0.7) L 11/14/18 12:14 Sodium 137 mmol/L (137-145) 11/14/18 04:26 Potassium 4.7 mmol/L (3.6-5.0) 11/14/18 04:26 Chloride 102.8 mmol/L (98-107) 11/14/18 04:26 Carbon Dioxide 24 mmol/L (22-30) 11/14/18 04:26 15 mmol/L 11/14/18 04:26 BUN 20 mg/dL (9-20) 11/14/18 04:26 1.3 mg/dL (0.8-1.5) 11/14/18 04:26 Estimated GFR 54 ml/min 11/14/18 04:26 15 % 11/14/18 04:26 Glucose 215 mg/dL (75-100) H 11/14/18 04:26 POC Glucose 202 (70-105) H 11/15/18 06:47 11.6 % (4-6) H 11/15/18 03:34 Calcium 8.7 mg/dL (8.4-10.2) 11/14/18 04:26 0.30 mg/dL (0.1-1.2) 11/12/18 21:05 AST 44 units/L (5-40) H 11/12/18 21:05 ALT 53 units/L (7-56) 11/12/18 21:05 75 units/L (35-129) 11/12/18 21:05 786 units/L (55-170) H 11/13/18 05:21 CK-MB (CK-2) 113.7 ng/mL (0.0-4.0) H 11/13/18 05:21 CK-MB (CK-2) Rel Index 14.4 (0-4) H 11/13/18 05:21 2.430 ng/mL (0.00-0.029) H* D 11/13/18 05:21 7.4 g/dL (6.3-8.2) 11/12/18 21:05 3.9 g/dL (3.9-5) 11/12/18 21:05 1.1 % 11/12/18 21:05 Triglycerides 260 mg/dL (2-149) H 11/12/18 21:05 Cholesterol 176 mg/dL (50-199) 11/12/18 21:05 104 mg/dL (50-130) 11/12/18 21:05 28 mg/dL (40-59) L 11/12/18 21:05 6.28 % 11/12/18 21:05 56 units/L (13-60) 11/12/18 21:05 Blood Type A POSITIVE 11/15/18 06:03 Antibody Screen Negative 11/15/18 06:03 Active Medications - Current Medications Current Medications: Generic Name Dose Route Start Last Admin Trade Name Freq PRN Reason Stop Dose Admin Acetaminophen 650 mg 11/12/18 23:27 Tylenol PO Q4H PRN Headache Aspirin 325 mg 11/13/18 10:00 11/14/18 10:41 Aspirin PO 325 mg QDAY WHITNEY Administration Atorvastatin Calcium 40 mg 11/13/18 22:00 11/14/18 21:10 Lipitor PO 40 mg QHS WHITNEY Administration Clopidogrel Bisulfate 75 mg 11/14/18 10:00 11/14/18 10:41 Plavix PO 75 mg QDAY [facility] Administration Dextrose 50 ml 11/12/18 23:25 D50w (25gm) Syringe IV PRN PRN Hypoglycemia Heparin Sodium/Sodium Chloride 25,000 unit in 500 mls @ 20 mls/hr 11/12/18 22 :00 11/15/18 04:18 Heparin/ 0.45% Nacl-25,000 Unit/500 Ml IV 900 units/hr TITRATE WHITNEY 18 mls/hr Administration Protocol 1,000 UNITS/HR Insulin Human Regular 0 units 11/14/18 06:00 11/15/18 06:50 Humulin R SUB-Q Not Given Q6HR [facility] Protocol Lisinopril 5 mg 11/13/18 10:00 11/14/18 10:41 Zestril PO 5 mg QDAY WHITNEY Administration Metoprolol Tartrate 25 mg 11/13/18 12:00 11/15/18 04:01 Lopressor PO Not Given Q8H [facility] Morphine Sulfate 2 mg 11/12/18 23:31 Morphine IV Q3H PRN Pain, Moderate (4-6) Nitroglycerin 0.4 mg 11/12/18 19:41 11/12/18 20:05 Nitrostat SL 0.4 mg .Q5MIN PRN Administration Chest Pain Nitroglycerin 1 inch 11/13/18 14:00 11/15/18 06:07 Nitro-Bid 2% TP Not Given QIDNTG [facility] Protocol Ondansetron HCl 4 mg 11/12/18 23:31 11/12/18 21:00 Zofran IV 4 mg Q8H PRN Administration Nausea And Vomiting Sertraline HCl 50 mg 11/13/18 10:00 11/14/18 10:41 Zoloft PO 50 mg QDAY WHITNEY Administration
[2018-11-15 08:18] LABS: INR 0.98 (0.87-1.13)
[2018-11-15 08:19] LABS: Partial Thromboplastin Time 37.3 Sec. (24.2-36.6)
[2018-11-15] MEDS ORDERED: XYLOCAINE 2% INFILTRATI ONE (11:18)
[2018-11-15] MEDS ORDERED: CALAN ONE (11:18)
[2018-11-15] MEDS ORDERED: HEPARIN 10,000 UNITS/10 ML ONE ×2 (11:18→12:48)
[2018-11-15] MEDS ORDERED: HEPARIN/NS 5000 UNIT/500ML(CATH LAB) 1,000 ML IR ONE (11:18)
[2018-11-15] MEDS ORDERED: NITROGLYCERIN SYRINGE 3 ML ONE (11:19)
[2018-11-15] MEDS ORDERED: SUBLIMAZE ONE (11:38)
[2018-11-15] MEDS ORDERED: VERSED ONE (11:38)
[2018-11-15] MEDS ORDERED: NACL 0.9% 500 ML 500 ML ONE (11:39)
[2018-11-15] MEDS ORDERED: PLAVIX ONE (12:56)
[2018-11-15] MEDS ORDERED: ALUM-MAG HYDROX-SIMETH 200-200-20MG/5ML ONE (12:59)
--- NOTE | 2018-11-15 13:34 | Cardiac Catherization Report ---
CARDIAC CATHETERIZATION AND CORONARY ANGIOPLASTY REPORT REASON FOR PROCEDURE: The patient is a 78-year-old man with coronary artery disease, status post previous 3-way coronary artery bypass. He presented to the hospital with chest pain and evidence of a non-ST elevation myocardial infarction. Cardiac catheterization was recommended. PROCEDURE: 1. Left heart catheterization. 2. Selective left and right coronary angiography. 3. Selective angiography of the left internal mammary artery graft. 4. Selective angiography of the saphenous vein grafts. 5. Left ventricle angiography. 6. Coronary angioplasty and stenting of the right coronary artery. 7. Sedation time, start 11:52, end 12:42. The patient was prepped and draped in a sterile fashion after informed consent. The right femoral artery was entered using the Seldinger technique followed by placement of a 6-[place] sheath. Selective left and right coronary angiography was performed using #4 right and left Eriberto catheters. The right Eriberto was used for saphenous vein angiography. We then exchanged for a left internal mammary artery graft catheter for mammary graft angiography. The pigtail catheter was then used for left ventricle angiography. The angiograms were reviewed. HEMODYNAMICS: Left ventricular end-diastolic pressure was 14. Ascending aortic pressure was 114/58. There was no significant pressure gradient on pullback across the aortic valve. CORONARY ANGIOGRAPHY: The left main coronary artery was free of significant disease. The left anterior descending artery was completely occluded in its proximal segment. The left internal mammary artery graft to the LAD was patent with good anastomosis to the mid LAD and good distal runoff. The saphenous vein graft to the proximal diagonal branch of the LAD was also patent with good anastomosis and good distal runoff. The [place] circumflex artery contained a long, 85-90% stenosis of its proximal segment. The first anterolateral obtuse marginal branch was severely, diffusely diseased in its proximal to mid segment. The saphenous vein graft to the first anterolateral obtuse marginal was patent with anastomosis to the mid segment of this vessel and good distal runoff. The terminal obtuse marginal was a medium-sized vessel, not previously bypassed, with flow compromised by the proximal circumflex disease. The right coronary artery was dominant. This vessel appeared not to have been previously bypassed. A stent was visible in the mid vessel, and demonstrated a long segment of severe in-stent restenosis with up to 95% luminal narrowing. Following this, another stent was visible in the distal AV groove vessel and this distal stent also demonstrated severe proximal border restenosis, 90-95%. There was moderately severe left ventricular systolic dysfunction, left ventricular ejection fraction 30-35%. CORONARY ANGIOPLASTY: After review of the angiograms, ad hoc coronary intervention to the right coronary artery was recommended. We selected a #4 right Eriberto guiding catheter and advanced to the right coronary ostium. A 0.014-inch Safety Assistant 50 guidewire was introduced into the vessel, successfully across the lesional segments in the mid and distal vessel. [place] drug-eluting stents were then deployed, with a 2.75-3.0 mm stents deployed across the distal vessel covering the restenosis lesions. We then deployed a 3.5 mm drug-eluting stent covering the restenosis lesion of the mid vessel. Following stenting of the right coronary artery, there was an excellent angiographic result, 0 residual stenosis at the treated sites, EDIE 3 flow. The patient tolerated the procedure well and there were no complications. CONCLUSION: 1. Severe 3-vessel coronary disease. 2. Patent bypass grafts x 3, [place] to the LAD, saphenous vein graft to the diagonal branch and saphenous vein graft to the anterolateral obtuse marginal. 3. Severe in-stent restenosis of stent in the mid and distal segments of the right coronary artery. 4. Severe de brigid proximal circumflex disease, feeding a medium-sized terminal obtuse marginal. 5. Ischemic cardiomyopathy, moderately severe left ventricular systolic dysfunction, ejection fraction 30-35%. 6. Successful ad hoc angioplasty and stenting of the mid and distal segments of the right coronary artery, excellent angiographic result after drug-eluting stent deployment for diffuse in-stent restenosis. The patient will be staged for second vessel intervention to the proximal circumflex artery. [facility]# [id number] CA/NTS
--- NOTE | 2018-11-15 13:39 | Event Note ---
Date: 11/15/18 Cardiac catheterization completed, no complications. 1. Severe three-vessel coronary artery disease 2. 3 patent bypass grafts, [place] to LAD, saphenous vein graft to the anterolateral obtuse marginal, saphenous vein graft to the diagonal branch 3. Severe disease of the right coronary artery, representing diffuse in-stent restenosis of the mid and distal AV groove vessel 4. Severe de brigid disease of the proximal circumflex perfusion a medium-sized distal obtuse marginal that was not previously bypassed 5. Ischemic cardiomyopathy, severe left ventricle systolic dysfunction, ejection fraction 30% 6. Successful ad-hock angioplasty and stenting of the mid and distal right coronary artery, excellent angiographic result following deployment of additional serial drug-eluting stents. The patient will be staged as an outpatient for second vessel coronary intervention to the proximal circumflex artery, intended to perfuse the distal obtuse marginal.
[2018-11-15] MEDS: PLAVIX PO SCH (14:26)
[2018-11-15] MEDS: ZOLOFT PO SCH (14:26)
[2018-11-15] MEDS: ZESTRIL PO SCH (14:26)
[2018-11-15] MEDS: ASPIRIN PO SCH (14:27)
[2018-11-16] MEDS: NITRO-BID 2% TP SCH ×2 (05:30→10:13)
[2018-11-16] MEDS: LOPRESSOR PO SCH ×2 (05:30→13:01)
[2018-11-16 05:34] LABS: Basophils # (Auto) 0.1 K/mm3 (0.0-0.1); Basophils % (Auto) 0.9 % (0.0-1.8); Eosinophils # (Auto) 0.4 K/mm3 (0.0-0.4); Eosinophils % (Auto) 5.2 % (0.0-4.3); Hematocrit 40.3 % (35.5-45.6); Hemoglobin 13.6 gm/dl (11.8-15.2); Lymphocytes # (Auto) 1.3 K/mm3 (1.2-5.4); Lymphocytes % (Auto) 17.9 % (13.4-35.0); Mean Corpuscular HGB Conc 34 % (32-34); Mean Corpuscular Hemoglobin 31 pg (28-32); Mean Corpuscular Volume 92 fl (84-94); Monocytes % (Auto) 12.8 % (0.0-7.3); Platelet Count 264 K/mm3 (140-440); Red Blood Count 4.37 M/mm3 (3.65-5.03); Red Cell Distribution Width 14.2 % (13.2-15.2)
[2018-11-16 05:43] LABS: Creatine Kinase MB 3.9 ng/mL (0.0-4.0)
[2018-11-16 05:44] LABS: Calcium 8.9 mg/dL (8.4-10.2)
--- NOTE | 2018-11-16 08:39 | XRay Report ---
CHEST 1 VIEW INDICATION / CLINICAL INFORMATION: post pci. COMPARISON: 11/12/2018 FINDINGS: SUPPORT DEVICES: Dual-chamber pacemaker on the left, endocardial leads are intact and unchanged in po sition. HEART / MEDIASTINUM: No significant abnormality. LUNGS / PLEURA: No significant pulmonary or pleural abnormality. No pneumothorax. ADDITIONAL FINDINGS: Subsegmental atelectasis has developed in the right lower lung IMPRESSION: 1. No acute findings. 2. New subsegmental atelectasis in the right lower lobe. Signer Name: Jonh Delarosa MD Signed: 11/16/2018 8:34 AM Workstation Name: [id number]
[2018-11-16] MEDS: HumuLIN R SUB-Q SCH ×2 (08:41→12:59)
[2018-11-16] MEDS: ZOLOFT PO SCH (10:13)
[2018-11-16] MEDS: ASPIRIN PO SCH (10:13)
[2018-11-16] MEDS: PLAVIX PO SCH (10:13)
[2018-11-16] MEDS: ZESTRIL PO SCH (10:14)
--- NOTE | 2018-11-16 10:36 | Progress Note ---
Assessment and Plan NSTEMI Cardiac catheterization no complications. 1. Severe three-vessel coronary artery disease 2. 3 patent bypass grafts, [place] to LAD, saphenous vein graft to the anterolateral obtuse marginal, saphenous vein graft to the diagonal branch 3. Severe disease of the right coronary artery, representing diffuse in- stent restenosis of the mid and distal AV groove vessel 4. Severe de brigid disease of the proximal circumflex perfusion a medium- sized distal obtuse marginal that was not previously bypassed 5. Ischemic cardiomyopathy, severe left ventricle systolic dysfunction, ejection fraction 30% 6. Successful ad-hock angioplasty and stenting of the mid and distal right coronary artery, excellent angiographic result following deployment of additional serial drug-eluting stents. Hx of CAD Hypertension Diabetes Hyperlipidemia Dual-chamber Pacemaker Continue medical therapy for coronary artery disease including plavix and aspirin without interruption. Follow up with [facility] within 5-7 days. The patient will be staged as an outpatient for second vessel coronary intervention to the proximal circumflex artery, intended to perfuse the distal obtuse marginal. Subjective Date of service: 11/16/18 Interval history: Patient is resting in bed comfortably. He denies chest pain and shortness of breath. Objective Vital Signs Temp Pulse Resp BP Pulse Ox 11/16/18 10:14 60 133/66 11/16/18 10:13 60 133/66 11/16/18 08:14 97.7 F 60 18 133/66 95 11/16/18 05:35 97.4 F L 62 18 114/73 95 11/15/18 23:41 98.1 F 11/15/18 23:40 43 L 18 126/67 96 11/15/18 22:00 96 11/15/18 20:47 65 11/15/18 19:30 97.9 F 11/15/18 19:28 64 18 99/55 95 11/15/18 17:56 61 98/52 11/15/18 16:41 97.9 F 56 L 18 101/60 96 11/15/18 16:35 61 98/52 94 11/15/18 16:05 62 111/72 97 11/15/18 15:50 65 130/61 11/15/18 15:20 60 122/65 95 11/15/18 15:05 60 18 103/67 11/15/18 14:50 58 L 124/72 95 11/15/18 14:35 97.6 F 58 L 18 132/69 95 11/15/18 14:26 60 129/75 11/15/18 13:27 97.9 F 63 18 134/82 99 - Physical Examination General: No Apparent Distress HEENT: Positive: PERRL Neck: Positive: trachea midline Cardiac: Positive: Other (paced) Lungs: Positive: Decreased Breath Sounds Neuro: Positive: Grossly Intact Abdomen: Positive: Soft Incision: Cardiac Cath Site (right groin) Extremities: Absent: edema - Labs and Meds Cardiac Enzymes 11/16/18 Range/Units 04:24 CK-MB (CK-2) 3.9 (0.0-4.0) ng/mL CBC 11/16/18 Range/Units 04:24 WBC 7.4 (4.5-11.0) K/mm3 RBC 4.37 (3.65-5.03) M/mm3 Hgb 13.6 (11.8-15.2) gm/dl Hct 40.3 (35.5-45.6) % Plt Count 264 (140-440) K/mm3 Lymph # 1.3 (1.2-5.4) K/mm3 [place] # 1.0 H (0.0-0.8) K/mm3 Eos # 0.4 (0.0-0.4) K/mm3 Baso # 0.1 (0.0-0.1) K/mm3 Comprehensive Metabolic Panel 11/16/18 Range/Units 04:24 Sodium 137 (137-145) mmol/L Potassium 4.9 (3.6-5.0) mmol/L Chloride 101.1 (98-107) mmol/L Carbon Dioxide 27 (22-30) mmol/L BUN 17 (9-20) mg/dL Creatinine 1.4 (0.8-1.5) mg/dL Glucose 183 H (75-100) mg/dL Calcium 8.9 (8.4-10.2) mg/dL
[2018-11-16 12:30] VITALS: BP 107/53
--- NOTE | 2018-11-16 12:59 | Discharge Summary ---
Providers - Providers Date of Admission: 11/12/18 22:35 Date of discharge: 11/16/18 Attending physician: GRAEME SOLORZANO 11/12/18 23:22 Consult to Physician [CONS] Routine Comment: Consulting Provider: LOUISA ESTRADA Physician Instructions: Reason For Exam: NSTEMI 11/15/18 Consult to Cardiac Rehabilitation [CONS] Routine Reason For Exam: post pci Primary care physician: ALIRIO KRAMER Hospitalization Reason for admission: chest pain Condition: Fair Hospital course: --Non-ST elevation [place]; Aspirin, beta blockers, olive inhibitors, nitrates, statins Morphine, heparin drip and supportive care Echocardiogram for LV function /ejection fraction Cardiology following, heart cath today --History of coronary artery disease status post CABG Resume all home medications Follow cardiology recommendations --Acute systolic congestive heart failure; ejection fraction 30-35% Continue anti-failure medications --Hypertension; well controlled Continue current antihypertensives --Diabetes mellitus; moderate control Accu-Chek sliding scale coverage and ADA diet Oral hypoglycemics as needed --Dyslipidemia; statin, low-cholesterol diet --History of depression; continue Zoloft --DVT prophylaxis; heparin drip --Full CODE STATUS Monitor closely and adjust management as needed Disposition: DC-01 TO HOME OR SELFCARE Time spent for discharge: 32 min Core Measure Documentation - Palliative Care Palliative Care/ Comfort Measures: Not Applicable - Core Measures Any of the following diagnoses?: heart failure - Heart Failure Discharge Requirements OLIVE/ARB for LVSD if EF <40%: Yes Beta [place] at discharge: Yes Exam - Constitutional Vitals: Temp Pulse Resp BP Pulse Ox 98.4 F 62 18 107/53 95 11/16/18 11:38 11/16/18 11:38 11/16/18 11:38 11/16/18 11:38 11/16/18 11:38 Plan Activity: advance as tolerated, fall precautions Diet: other (cardiac diet) Additional Instructions: If you have chest pain or shortness of breath ,contact MD or go to ED. f/u cardiology outpatient for second vessel coronary intervention to the proximal circumflex artery, intended to perfuse the distal obtuse marginal. Follow up with: ALIRIO KRAMER MD [Primary Care Provider] - 3-5 Days SID PENNINGTON MD [Staff Physician] - 7 Days Forms: CardCath PCI D/C Instructions Prescriptions: Aspirin [Aspirin BABY CHEW TAB] 81 mg PO QDAY #30 tab.chew ISOSORBIDE MONOnitrate [Imdur ER] 30 mg PO DAILY #30 tab.er.24h AtorvaSTATin [Lipitor] 40 mg PO QHS #30 tablet Metoprolol [Lopressor TAB] 25 mg PO Q8H #90 tablet Clopidogrel [Plavix] 75 mg PO QDAY #30 tablet Lisinopril [Zestril TAB] 5 mg PO QDAY #30 tablet
== END 2018-11-16 16:00 | disposition home or self-care (01) | DRG 246 ==
LOC: ED 19:16 → 4A 22:35
PROVIDERS: ADMIT Internal Medicine; ATTEND Internal Medicine
PROC: 4A023N7 Measurement of Cardiac Sampling and Pressure, Left Heart, Percutaneous Approach (ICD-10-PCS; principal; 2018-11-15)
PROC: 027036Z Dilation of Coronary Artery, One Artery with Three Drug-eluting Intraluminal Devices, Percutaneous Approach (ICD-10-PCS; 2018-11-15)
PROC: B2111ZZ Fluoroscopy of Multiple Coronary Arteries using Low Osmolar Contrast (ICD-10-PCS; 2018-11-15)
PROC: B2131ZZ Fluoroscopy of Multiple Coronary Artery Bypass Grafts using Low Osmolar Contrast (ICD-10-PCS; 2018-11-15)
PROC: B2181ZZ Fluoroscopy of Left Internal Mammary Bypass Graft using Low Osmolar Contrast (ICD-10-PCS; 2018-11-15)
PROC: B2151ZZ Fluoroscopy of Left Heart using Low Osmolar Contrast (ICD-10-PCS; 2018-11-15)
DX: T82.855A Stenosis of coronary artery stent, initial encounter (principal); I21.4 Non-ST elevation (NSTEMI) myocardial infarction; I50.21 Acute systolic (congestive) heart failure; I25.10 Atherosclerotic heart disease of native coronary artery without angina pectoris; I11.0 Hypertensive heart disease with heart failure; I69.30 Unspecified sequelae of cerebral infarction; I25.2 Old myocardial infarction; E11.9 Type 2 diabetes mellitus without complications; K21.9 Gastro-esophageal reflux disease without esophagitis; E78.5 Hyperlipidemia, unspecified; I25.5 Ischemic cardiomyopathy; E78.00 Pure hypercholesterolemia, unspecified; Y83.8 Other surgical procedures as the cause of abnormal reaction of the patient, or of later complication, without mention of misadventure at the time of the procedure; Y92.89 Other specified places as the place of occurrence of the external cause; Z95.5 Presence of coronary angioplasty implant and graft; Z95.0 Presence of cardiac pacemaker; Z79.84 Long term (current) use of oral hypoglycemic drugs
CPT/HCPCS: 36415; 71045; 80048; 80053; 80061; 82550; 82553; 82962; 83036; 83690; 84484; 85014; 85018; 85025; 85049; 85520; 85610; 85730; 86850; 86900; 86901; 92928; 93005; 93010; 93459; 94760; 96374; 96375; G0378; A9270-GY; C1760; C1769; C1874; C1887; C1894; C9600; J1644; J1815; J2250; J2270; J2405; J3010; J7040; Q9967

== ENCOUNTER 2018-12-02 06:26 | Observation (INO) | payer MEDICARE ==
[2018-12-02] MEDS ORDERED: ECOTRIN PO ONE (06:48)
[2018-12-02] MEDS ORDERED: NACL 0.9% 500 ML 500 ML IV SCH (07:00)
[2018-12-02 07:19] LABS: Basophils # (Auto) 0.2 K/mm3 (0.0-0.1); Basophils % (Auto) 2.3 % (0.0-1.8); Eosinophils # (Auto) 0.6 K/mm3 (0.0-0.4); Eosinophils % (Auto) 8.8 % (0.0-4.3); Hematocrit 43.3 % (35.5-45.6); Hemoglobin 15.1 gm/dl (11.8-15.2); Lymphocytes # (Auto) 1.5 K/mm3 (1.2-5.4); Lymphocytes % (Auto) 21.5 % (13.4-35.0); Mean Corpuscular HGB Conc 35 % (32-34); Mean Corpuscular Volume 91 fl (84-94); Monocytes # (Auto) 0.8 K/mm3 (0.0-0.8); Monocytes % (Auto) 10.9 % (0.0-7.3); Platelet Count 237 K/mm3 (140-440); Red Blood Count 4.77 M/mm3 (3.65-5.03); Red Cell Distribution Width 14.5 % (13.2-15.2)
[2018-12-02 07:29] LABS: Calcium 9.1 mg/dL (8.4-10.2)
[2018-12-02] MEDS ORDERED: PLAVIX PO ONE (07:42)
[2018-12-02] MEDS ORDERED: PLAVIX ONE ×2 (07:44→11:21)
[2018-12-02 07:48] LABS: INR 0.99 (0.87-1.13)
[2018-12-02] MEDS ORDERED: NITROGLYCERIN SYRINGE 3 ML ONE ×2 (08:32→11:00)
[2018-12-02] MEDS ORDERED: XYLOCAINE 2% INFILTRATI ONE (08:32)
[2018-12-02] MEDS ORDERED: HEPARIN/NS 5000 UNIT/500ML(CATH LAB) 1,000 ML IR ONE (08:32)
[2018-12-02] MEDS ORDERED: CALAN ONE (09:59)
[2018-12-02] MEDS: VERSED ONE ×2 (10:17→10:56)
[2018-12-02] MEDS: SUBLIMAZE ONE ×3 (10:17→10:56)
[2018-12-02] MEDS: HEPARIN 10,000 UNITS/10 ML ONE ×3 (10:18→10:42)
[2018-12-02] MEDS ORDERED: HEPARIN 10,000 UNITS/10 ML ONE (11:13)
--- NOTE | 2018-12-02 11:32 | Cardiac Catherization Report ---
CORONARY ANGIOPLASTY REPORT REASON FOR PROCEDURE: The patient is a 78-year-old man with multivessel coronary artery disease. Two weeks ago, he underwent coronary intervention to the mid and distal segments of the right coronary artery for diffuse coronary atherosclerosis. Today, he returns to the hospital for staged, second vessel intervention to the mid circumflex artery. PROCEDURE: 1. Coronary angioplasty and stenting of the mid circumflex artery. 2. Sedation time, start 10:17, end 11:04. The patient was prepped and draped in a sterile fashion after informed consent. The right radial cath site was prepped and draped after a negative Ed's test. The right radial artery was entered using the Seldinger technique followed by placement of a 6-[place] hydrophilic sheath. Routine radial cocktail was administered via the sheath. We selected a #3.0 XB guiding catheter and advanced to the left coronary ostium. Pre-intervention angiograms were taken of the left coronary system. A 0.014 inch Wood Block Artist 50 guidewire was introduced into the circumflex, across the lesional segment. Pre-dilatation balloon angioplasty was then performed using a 2.5 mm balloon catheter. Coronary intervention was difficult due to an acute bend in the proximal circumflex, as well as severe tortuosity of the neck vessels, but we were eventually able to use a yung wire, and successfully transitioned a 2.75 x 12 mm Resolute drug-eluting stent into the lesional segment. Following that, another 3.0 x 8 mm Resolute stent was deployed proximally, with both stents intended to cover the lesional segment. Following stent deployment, the wires were taken out, angiograms revealed an excellent angiographic result, 0 residual stenosis, EDIE 3 flow. Procedure was well tolerated by the patient and there were no complications. CONCLUSION: Successful angioplasty and stenting of the mid circumflex artery, a long, 90% stenosis was treated with serial 2.75-3.0 mm drug-eluting stents, excellent angiographic result. JOB# [id number] ABRIL/EMILY
[2018-12-02] MEDS ORDERED: ZOFRAN IV PRN (11:44)
[2018-12-02] MEDS ORDERED: AMBIEN PO PRN (11:44)
--- NOTE | 2018-12-02 11:47 | Event Note ---
Date: 12/02/18 Patient underwent outpatient coronary angioplasty and stenting of the mid circumflex artery, excellent angiographic result following deployment of serial, 2.75-3.0 mm drug-eluting stents. The procedure was done by the right radial approach. Procedure was well tolerated and there are no complications. Patient will be admitted overnight for post procedure observation and IV hydration. Anticipated discharge tomorrow morning.
[2018-12-02] MEDS ORDERED: NACL 0.9% 1000 ML 1,000 ML IV SCH (12:00)
[2018-12-02] MEDS: ULTRAM PO PRN (12:12)
[2018-12-02] MEDS ORDERED: DILAUDID IV PRN (12:16)
[2018-12-02] MEDS ORDERED: DILAUDID ONE ×2 (12:21)
[2018-12-02] MEDS ORDERED: DILAUDID IV ONE (12:21)
[2018-12-02] MEDS ORDERED: ZESTRIL PO SCH (14:00)
[2018-12-02] MEDS: LOPRESSOR PO SCH ×2 (14:54→21:37)
[2018-12-02] MEDS: IMDUR PO SCH (14:54)
[2018-12-02] MEDS: PROCARDIA XL PO SCH (14:54)
[2018-12-02] MEDS ORDERED: HumuLIN R SUB-Q NR (23:17)
[2018-12-03] MEDS: ULTRAM PO PRN (03:09)
[2018-12-03 05:37] LABS: Hematocrit 33.4 % (35.5-45.6); Hemoglobin 11.5 gm/dl (11.8-15.2); Mean Corpuscular HGB Conc 35 % (32-34); Mean Corpuscular Volume 92 fl (84-94); Platelet Count 215 K/mm3 (140-440); Red Blood Count 3.63 M/mm3 (3.65-5.03); Red Cell Distribution Width 14.8 % (13.2-15.2)
[2018-12-03 05:54] LABS: Creatine Kinase MB 18.9 ng/mL (0.0-4.0)
[2018-12-03] MEDS: LOPRESSOR PO SCH ×2 (06:18→13:27)
[2018-12-03 06:31] LABS: Chol/HDL Ratio 4.78 %
[2018-12-03 06:54] LABS: Total Cells Counted 100
[2018-12-03 06:55] LABS: Anisocytosis Few; Platelet Estimate Consistent w Auto
[2018-12-03] MEDS ORDERED: AMARYL PO SCH (08:00)
[2018-12-03] MEDS ORDERED: NACL 0.9% 1000 ML 1,000 ML IV SCH (09:00)
--- NOTE | 2018-12-03 09:03 | XRay Report ---
CHEST 1 VIEW INDICATION: Status post coronary artery catheterization. COMPARISON: 11/16/2018 FINDINGS: Support devices: 2-lead pacemaker device is in position and unchanged. Heart: Normal size heart. Previous CABG changes are noted. Lungs/Pleura: No acute air space or interstitial disease. Additional findings: None. IMPRESSION: No acute findings. Signer Name: Blanco Pinzon Jr, MD Signed: 12/03/2018 8:59 AM Workstation Name: [id number]
[2018-12-03] MEDS ORDERED: KIONEX PO ONE (09:30)
[2018-12-03] MEDS ORDERED: PLAVIX PO SCH (10:00)
[2018-12-03] MEDS ORDERED: GLIMEPIRIDE 2 MG OD SCH (10:00)
[2018-12-03] MEDS ORDERED: NON-FORMULARY (Omeprazole 20 MG) PO SCH (10:00)
[2018-12-03] MEDS ORDERED: PROTONIX PO SCH (10:00)
[2018-12-03] MEDS ORDERED: BABY ASPIRIN PO SCH (10:00)
[2018-12-03] MEDS ORDERED: CLARITIN PO SCH (10:00)
[2018-12-03] MEDS: HumuLIN R SUB-Q SCH ×2 (10:37→13:26)
[2018-12-03] MEDS: IMDUR PO SCH (10:38)
[2018-12-03] MEDS: PROCARDIA XL PO SCH (10:38)
[2018-12-03 13:28] VITALS: BP 101/52
[2018-12-03 14:38] LABS: Hematocrit 34.3 % (35.5-45.6); Hemoglobin 11.8 gm/dl (11.8-15.2); Mean Corpuscular HGB Conc 34 % (32-34); Mean Corpuscular Volume 92 fl (84-94); Platelet Count 212 K/mm3 (140-440); Red Blood Count 3.72 M/mm3 (3.65-5.03); Red Cell Distribution Width 14.5 % (13.2-15.2)
--- NOTE | 2018-12-03 14:48 | Short Stay Summary ---
Short Stay Documentation Date of service: 12/03/18 - History H&P: obtained from office - Allergies and Medications Current Medications: Allergies No Known Allergies Allergy (Verified 09/17/18 09:28) Home Medications Medication Instructions Recorded Confirmed Last Taken Type Omeprazole 20 mg PO DAILY 11/09/16 12/02/18 12/01/18 History Glimepiride 2 mg OD DAILY 09/17/18 12/02/18 12/01/18 History Sertraline 100 mg PO DAILY 09/17/18 12/02/18 11/30/18 History Turmeric 500 mg PO DAILY 09/17/18 12/02/18 11/30/18 History traMADol 50 mg PO DAILY 09/17/18 12/02/18 12/01/18 History Aspirin [Aspirin BABY CHEW TAB] 81 mg PO QDAY #30 tab.chew 11/16/18 12/02/18 12/01/18 Rx Clopidogrel [Plavix] 75 mg PO QDAY #30 tablet 11/16/18 12/02/18 12/01/18 Rx ISOSORBIDE MONOnitrate [Imdur ER] 30 mg PO DAILY #30 tab.er.24h 11/16/18 12/02/18 12/01/18 Rx Lisinopril [Zestril TAB] 5 mg PO QDAY #30 tablet 11/16/18 12/02/18 11/30/18 Rx Metoprolol [Lopressor TAB] 25 mg PO Q8H #90 tablet 11/16/18 12/02/18 12/01/18 Rx AtorvaSTATin [Lipitor] 40 mg PO DAILY 12/02/18 12/02/18 Unknown History Loratadine [Claritin] 10 mg PO DAILY 12/02/18 12/02/18 Unknown History NIFEdipine [Nifedipine ER] 60 mg PO DAILY 12/02/18 12/02/18 12/01/18 History Rosuvastatin Calcium 40 mg PO DAILY 12/02/18 12/02/18 12/01/18 History Active Medications Aspirin (Baby Aspirin) 81 mg PO QDAY [facility] Last Admin: 12/03/18 10:38 Dose: 81 mg Documented by: Atorvastatin Calcium (Lipitor) 40 mg PO QHS [facility] Last Admin: 12/02/18 21:37 Dose: 40 mg Documented by: Clopidogrel Bisulfate (Plavix) 75 mg PO QDAY [facility] Last Admin: 12/03/18 10:38 Dose: 75 mg Documented by: Glimepiride (Amaryl) 2 mg PO QDDIAB [facility] Last Admin: 12/03/18 10:37 Dose: 2 mg Documented by: Sodium Chloride (Nacl 0.9% 1000 Ml) 1,000 mls @ 100 mls/hr IV DIRECT [facility] Last Admin: 12/03/18 10:39 Dose: 100 mls/hr Documented by: Insulin Human Regular (Humulin R) 0 units SUB-Q ACHS [facility]; Protocol Last Admin: 12/03/18 13:26 Dose: 2 units Documented by: Isosorbide Mononitrate (Imdur) 30 mg PO DAILY [facility] Last Admin: 12/03/18 10:38 Dose: 30 mg Documented by: Loratadine (Claritin) 10 mg PO DAILY [facility] Last Admin: 12/03/18 10:39 Dose: 10 mg Documented by: Metoprolol Tartrate (Lopressor) 25 mg PO Q8H [facility] Last Admin: 12/03/18 13:27 Dose: 25 mg Documented by: Nifedipine (Procardia Xl) 60 mg PO DAILY [facility] Last Admin: 12/03/18 10:38 Dose: 60 mg Documented by: Ondansetron HCl (Zofran) 4 mg IV Q8H PRN PRN Reason: Nausea And Vomiting Last Admin: 12/02/18 12:22 Dose: 4 mg Documented by: Pantoprazole Sodium (Protonix) 20 mg PO QDAY [facility] Last Admin: 12/03/18 10:37 Dose: 20 mg Documented by: Tramadol HCl (Ultram) 50 mg PO Q4H PRN PRN Reason: Pain, Moderate (4-6) Last Admin: 12/03/18 03:09 Dose: 50 mg Documented by: Zolpidem Tartrate (Ambien) 5 mg PO QHS PRN PRN Reason: Sleep - Physical exam General appearance: no acute distress HEENT: PERRLA Lungs: Clear to auscultation Heart: Regular rate, Normal S1, Normal S2 - Brief post op/procedure progress note Procedure: Patient underwent outpatient coronary angioplasty and stenting of the mid circumflex artery, excellent angiographic result following deployment of serial, 2.75-3.0 mm drug-eluting stents. The procedure was done by the right radial approach. Procedure was well tolerated and there are no complications. Condition: stable - Hospital course Hospital course: Patient was admitted overnight for post procedure observation and IV hydration. Morning labs revealed hyperkalemia, potassium of 5.5 and acute kidney injury, cr eatinine at 1.6. Lisinopril was discontinued and patient was treated with Kayexalate and IV fluids. Patient denies chest pain and unusual shortness of breath and has remained stable. Repeat labs shows a creatinine of 1.4 and a potassium of 4.1. Patient will be discharged home today with continued medical therapy for coronary artery disease to include on Plavix, low dose ASA, statin, beta blockers and nitrates. Lisinopril has been discontinued. Patient has been advised to follow up with Dr Freeman at [facility], December 07 at 850a. - Disposition Condition at discharge: Good Disposition: [id number] TO HOME OR SELFCARE Short Stay Discharge Plan Activity: advance as tolerated Weight Bearing Status: Full Weight Bearing Diet: low fat, low cholesterol, low salt, diabetic Wound: keep clean and dry Additional Instructions: Follow up with Dr Freeman at [facility], December 07 at 850a. Follow up with: ALIRIO KRAMER MD [Primary Care Provider] - 7 Days ROCHELLE FREEMAN MD [Staff Physician] - 7 Days
[2018-12-03 15:01] LABS: Calcium 8.1 mg/dL (8.4-10.2)
== END 2018-12-03 16:05 | disposition home or self-care (01) ==
LOC: CATHLABREC 06:26 → 4A 11:34
PROVIDERS: ADMIT Internal Medicine Cardiovascular Disease; ATTEND Internal Medicine Cardiovascular Disease
DX: I25.810 Atherosclerosis of coronary artery bypass graft(s) without angina pectoris (principal); E11.9 Type 2 diabetes mellitus without complications; I10 Essential (primary) hypertension; I45.9 Conduction disorder, unspecified; Z86.73 Personal history of transient ischemic attack (TIA), and cerebral infarction without residual deficits; Z85.46 Personal history of malignant neoplasm of prostate; Z98.61 Coronary angioplasty status; Z79.899 Other long term (current) drug therapy; Z79.01 Long term (current) use of anticoagulants
CPT/HCPCS: 36415; 71045; 80048; 80061; 82550; 82553; 82962; 84484; 85007; 85025; 85027; 85347; 85610; 85730; 87116; 93005; 93010; 94760; 96372; 96374; 96375; A9270; C1725; C1769; C1874; C1887; C1894; C9600; G0378; J1170; J1644; J2250; J2405; J3010; J7030; J7040; 92928; J1815; Q9967

== ENCOUNTER 2018-12-31 11:50 | Outpatient (CLI) | payer MEDICARE ==
[2018-12-31 12:33] LABS: Bilirubin,Urine NEG (Negative); Blood,Urine SM (Negative); Color,Urine Yellow (Yellow); Protein,Urine <15 mg/dL mg/dL (Negative); Urobilinogen,Urine < 2.0 mg/dL (<2.0)
[2018-12-31 12:42] LABS: Calcium 9.2 mg/dL (8.4-10.2)
[2018-12-31 13:05] LABS: Creatinine,Urine 78.9 mg/dL (0.1-20.0); Protein/Creatinine Ratio,Urine 0.29
== END 2018-12-31 11:51 | disposition home or self-care (01) ==
LOC: LAB 11:50
PROVIDERS: ATTEND Internal Medicine Nephrology
DX: I12.9 Hypertensive chronic kidney disease with stage 1 through stage 4 chronic kidney disease, or unspecified chronic kidney disease (principal); N18.9 Chronic kidney disease, unspecified; K21.9 Gastro-esophageal reflux disease without esophagitis; M19.90 Unspecified osteoarthritis, unspecified site
CPT/HCPCS: 36415; 80048; 81001; 82040; 82570; 84100; 84156

== ENCOUNTER 2019-03-02 07:07 | Outpatient (CLI) | payer MEDICARE ==
--- NOTE | 2019-03-02 09:34 | Cat Scan Report ---
CT ABDOMEN AND PELVIS WITHOUT CONTRAST HISTORY: C61 PROSTATE CANCER COMPARISON: 11/10/2015 TECHNIQUE: Axial CT images were obtained through the abdomen and pelvis without IV contrast. Sagittal and coronal reformatted images. All CT scans at this location are performed using CT dose reduction for ALARA by means of automated exposure control. FINDINGS: CT ABDOMEN: Lung Bases: There is minor linear scarring or atelectasis in the right lower lobe. Otherwise the lung bases are clear. Borderline heart size. Liver: No significant abnormality. Biliary: Multiple small partially calcified gallstones are identified on today's exam. No biliary dil atation or inflammation. Spleen: Spleen is normal size. A wedge-shaped hypodense area has developed in the mid spleen measurin g up to 3.2 x 2.0 cm in axial plane. This is a new finding but has the appearance of a chronic focal splenic infarct. Pancreas: No significant abnormality. Adrenals: No significant abnormality. Kidneys: Bilateral solitary renal cysts measuring up to 3 cm are again noted and unchanged. No focal renal lesion, nephrolithiasis or hydronephrosis is appreciated. The ureters are normal course and ellen iber. Lymphatics: No lymphadenopathy. Vasculature: Moderate diffuse calcifications are noted throughout the abdominal aorta and superior me senteric artery. Bowel/Peritoneum: No evidence for bowel obstruction or focal inflammation. A few scattered diverticul a in the sigmoid colon are noted. No free fluid or free air. Normal appendix. CT PELVIS: : The bladder and distal ureters are unremarkable. Prostatectomy changes are suspected. No new pelv ic mass or adenopathy. Osseous Structures: Mild thoracolumbar spondylosis is stable. Bilateral decompressive laminectomies a t L4 are noted. No suspicious bony lesion is identified. Additional Findings: None IMPRESSION: No evidence for metastatic disease to the abdomen or pelvis. No bony lesions are detected. Cholelithiasis. Stable bilateral renal cysts. Chronic-appearing splenic infarct, see above. Atherosclerotic disease in the aorta. Mild sigmoid diverticulosis. Stable prostatectomy changes. Signer Name: Blanco Pinzon Jr, MD Signed: 03/02/2019 9:29 AM Workstation Name: [id number]
== END 2019-03-02 07:08 | disposition home or self-care (01) ==
LOC: CT 07:07
PROVIDERS: ATTEND Urology
DX: C61 Malignant neoplasm of prostate (principal); K80.20 Calculus of gallbladder without cholecystitis without obstruction; N28.1 Cyst of kidney, acquired; K57.90 Diverticulosis of intestine, part unspecified, without perforation or abscess without bleeding; I70.0 Atherosclerosis of aorta; I10 Essential (primary) hypertension; K21.9 Gastro-esophageal reflux disease without esophagitis; M13.832 Other specified arthritis, left wrist; F17.200 Nicotine dependence, unspecified, uncomplicated; Z98.890 Other specified postprocedural states
CPT/HCPCS: 74176

== ENCOUNTER 2019-04-12 16:16 | Outpatient (CLI) | payer MEDICARE ==
[2019-04-12 16:52] LABS: Bilirubin,Urine NEG (Negative); Blood,Urine NEG (Negative); Color,Urine Yellow (Yellow); Urobilinogen,Urine < 2.0 mg/dL (<2.0); WBC,Urine < 1.0 /HPF (0.0-6.0)
[2019-04-12 16:55] LABS: Creatinine,Urine 101.5 mg/dL (0.1-20.0); Protein/Creatinine Ratio,Urine 0.45
[2019-04-12 17:38] LABS: Albumin 4.3 g/dL (3.9-5); Calcium 9.4 mg/dL (8.4-10.2)
== END 2019-04-12 16:17 | disposition home or self-care (01) ==
LOC: LAB 16:16
PROVIDERS: ATTEND Internal Medicine Nephrology
DX: I12.9 Hypertensive chronic kidney disease with stage 1 through stage 4 chronic kidney disease, or unspecified chronic kidney disease (principal); E11.22 Type 2 diabetes mellitus with diabetic chronic kidney disease; R80.9 Proteinuria, unspecified; E78.5 Hyperlipidemia, unspecified; N28.1 Cyst of kidney, acquired; R31.21 Asymptomatic microscopic hematuria; Q63.8 Other specified congenital malformations of kidney; N18.9 Chronic kidney disease, unspecified
CPT/HCPCS: 36415; 80048; 81001; 82040; 82570; 84100; 84156

== ENCOUNTER 2019-08-12 11:24 | Outpatient (CLI) | payer MEDICARE ==
[2019-08-12 11:51] LABS: Hematocrit 41.4 % (35.5-45.6); Hemoglobin 13.7 gm/dl (11.8-15.2)
[2019-08-12 11:58] LABS: Bilirubin,Urine NEG (Negative); Blood,Urine SM (Negative); Color,Urine Yellow (Yellow); Mucus,Urine FEW /HPF; Urobilinogen,Urine < 2.0 mg/dL (<2.0); WBC,Urine < 1.0 /HPF (0.0-6.0)
[2019-08-12 12:19] LABS: Albumin 4.2 g/dL (3.9-5); Calcium 8.8 mg/dL (8.4-10.2)
[2019-08-12 13:56] LABS: Creatinine,Urine 102.8 mg/dL (0.1-20.0); Protein/Creatinine Ratio,Urine 0.49
== END 2019-08-12 11:25 | disposition home or self-care (01) ==
LOC: LAB 11:24
PROVIDERS: ATTEND Internal Medicine Nephrology
DX: I12.9 Hypertensive chronic kidney disease with stage 1 through stage 4 chronic kidney disease, or unspecified chronic kidney disease (principal); E11.22 Type 2 diabetes mellitus with diabetic chronic kidney disease; N18.9 Chronic kidney disease, unspecified; Q63.8 Other specified congenital malformations of kidney; E78.5 Hyperlipidemia, unspecified; N28.1 Cyst of kidney, acquired; R31.21 Asymptomatic microscopic hematuria; R80.9 Proteinuria, unspecified
CPT/HCPCS: 36415; 80048; 81001; 82040; 82570; 83970; 84100; 84156; 85014; 85018; 89050

== ENCOUNTER 2021-02-08 11:01 | Outpatient (CLI) | payer MEDICARE | END 2021-02-08 11:02 | disposition home or self-care (01) | LOC: ECHO 11:01 | PROVIDERS: ATTEND Internal Medicine Cardiovascular Disease | DX: I08.1 Rheumatic disorders of both mitral and tricuspid valves (principal); I21.A9 Other myocardial infarction type; I25.10 Atherosclerotic heart disease of native coronary artery without angina pectoris | CPT/HCPCS: 93306 ==

== ENCOUNTER 2021-02-19 14:36 | Outpatient (CLI) | payer MEDICARE ==
--- NOTE | 2021-02-19 16:27 | XRay Report ---
CHEST 2 VIEWS INDICATION: SHORTNESS OF BREATH R06.02. COMPARISON: 12/03/2018 FINDINGS: Support devices: 2-lead pacemaker device appears in good position Heart: Within normal limits. Previous CABG changes are suspected. Lungs/pleura: No acute air space or interstitial disease. No pneumothorax. Additional findings: None. IMPRESSION: No acute findings. No significant change since 12/03/2018. Signer Name: Blanco Pinzon Jr, MD Signed: 02/19/2021 4:23 PM Workstation Name: [id number]
== END 2021-02-19 14:37 | disposition home or self-care (01) ==
LOC: XRAY 14:36
PROVIDERS: ATTEND Internal Medicine
DX: R06.02 Shortness of breath (principal)
CPT/HCPCS: 71046